=== PATIENT | female | born 1980 | race Caucasian/White ===

== ENCOUNTER 2019-11-16 09:31 | Emergency (ER) | payer OTHER ==
[2019-11-16] MEDS ORDERED: KETOROLAC 30 MG/ML INJ ONE (11:26)
[2019-11-16] MEDS ORDERED: GABAPENTIN 300 MG CAP ONE (11:26)
[2019-11-16] MEDS ORDERED: carBAMazepine 200 MG TAB ONE (11:26)
--- NOTE | 2019-11-16 12:28 | ER ---
Nurse's Notes [facility] Name: Nelsy Hernández Age: 39 yrs Sex: Female : 1980 Arrival Date: 11/16/2019 Time: 09:33 Bed 24 Private MD: Junaid Joyce Diagnosis: Trigeminal neuralgia Presentation: 11/15 10:08 Chief complaint: Patient states: L side face pain since yesterday, L upper mouth and L ca1 jaw pain is worse. Pain with talking, swallowing, spitting. Denies dental issues. Coronavirus screen: Client denies travel out of the [place] in the last 14 days. At this time, the client does not indicate any symptoms associated with coronavirus-19. Ebola Screen: Patient negative for fever greater than or equal to 101.5 degrees Fahrenheit, and additional compatible Ebola Virus Disease symptoms Patient denies exposure to infectious person. Patient denies travel to an Ebola-affected area in the 21 days before illness onset. No symptoms or risks identified at this time. Initial Sepsis Screen: Does the patient meet any 2 criteria? No. Patient's initial sepsis screen is negative. Does the patient have a suspected source of infection? No. Patient's initial sepsis screen is negative. Risk Assessment: Do you want to hurt yourself or someone else? Patient reports no desire to harm self or others. Onset of symptoms was November 16, 2019. 10:08 Method Of Arrival: Ambulatory ca1 10:08 Acuity: CRISTINA 4 ca1 Triage Assessment: 12:00 Pain: Also complains of no other associated symptoms. iw 12:00 Headache History: The patient has had previous headaches. iw 13:00 General: Appears in no apparent distress. Behavior is cooperative. 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 - Social history:: Smoking status: Patient denies any tobacco usage or history of. Screenin:20 Abuse screen: Denies threats or abuse. Denies injuries from another. Nutritional sv screening: No deficits noted. Tuberculosis screening: No symptoms or risk factors identified. Fall Risk None identified. Assessment: 12:32 Reassessment: Patient appears in no apparent distress at this time. No changes from sv previously documented assessment. Patient and/or family updated on plan of care and expected duration. Pain level reassessed. Patient is alert, oriented x 3, equal unlabored respirations, skin warm/dry/pink. Pt waiting IM shot time before discharge. 13:02 Reassessment: Patient appears in no apparent distress at this time. Patient and/or sv family updated on plan of care and expected duration. Pain level reassessed. Patient is alert, oriented x 3, equal unlabored respirations, skin warm/dry/pink. Vital Signs: 10:08 BP 130 / 85; Pulse 79; Resp 18 S; Temp 99.4(TE); Pulse Ox 99% on R/A; Weight 77.11 kg ca1 (R); Height 5 ft. 5 in. (165.10 cm) (R); 12:11 BP 111 / 81; Pulse 84; Resp 20; Temp 99.4; Pulse Ox 100% on R/A; dh4 10:08 Body Mass Index 28.29 (77.11 kg, 165.10 cm) ca1 ED Course: 09:33 Patient arrived in ED. ag5 09:34 Junaid Joyce MD is Private Physician. ag5 10:10 Triage completed. ca1 10:11 Arm band placed on. ca1 10:14 Janet Sunshine, TARAN is Primary Nurse. iw 10:19 Nelly Ortiz FNP-C is [facility]. snw 10:19 Tomer Rincon MD is Attending Physician. snw 11:20 Patient has correct armband on for positive identification. Bed in low position. Call sv light in reach. Door closed. Head of bed elevated. 12:28 Junaid Joyce MD is Referral Physician. snw 12:28 Leonardo Talley MD is Referral Physician. snw 13:02 No provider procedures requiring assistance completed. Patient did not have IV access sv during this emergency room visit. Administered Medications: 11:20 Drug: Gabapentin 300 mg Route: PO; sv 12:27 Follow up: Response: No adverse reaction sv 11:20 Drug: TORadol 30 mg Route: IM; Site: right deltoid; sv 12:27 Follow up: Response: No adverse reaction sv 11:21 Drug: TEGretol 600 mg Route: PO; sv 12:27 Follow up: Response: No adverse reaction sv 12:32 Drug: fentaNYL (PF) 50 mcg Route: IM; Site: left deltoid; sv 13:02 Follow up: Response: No adverse reaction; RASS: Alert and Calm (0) sv Outcome: 12:28 Discharge ordered by MD. rosas 13:02 Discharged to home ambulatory. sv 13:02 Condition: stable 13:02 Discharge instructions given to patient, Instructed on discharge instructions, follow up and referral plans. medication usage, Demonstrated understanding of instructions, follow-up care, medications, Prescriptions given X 2. 13:02 Patient left the ED. sv Signatures: Mary Campos RN Nelly Vogt, FEED MILL TENDER-C FEED MILL TENDER-Csnw Janet Sunshine, RN TARAN Rama Howell RN RN ca1 [place], Ajare 5 Gonzalez Johnson 4
--- NOTE | 2019-11-16 12:28 | EDPHYS ---
Physician Documentation [facility] Name: Nelsy Hernández Age: 39 yrs Sex: Female : 1980 Arrival Date: 11/16/2019 Time: 09:33 Bed 24 Private MD: Junaid Joyce ED Physician Tomer Rincon HPI: 11/15 12:27 This 39 yrs old Female presents to ER via Ambulatory with complaints of snw Facial Swelling, Jaw Pain, Headache. 12:27 Onset: The symptoms/episode began/occurred suddenly, this morning. Associated signs and snw symptoms: Pertinent positives: headache. Modifying factors: The patient symptoms are alleviated by nothing. The patient has experienced a previous episode, but today's symptoms are worse. The patient has not recently seen a physician. 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 - Social history:: Smoking status: Patient denies any tobacco usage or history of. ROS: 12:26 Constitutional: Negative for fever, chills, and weight loss, Eyes: Negative for injury, snw pain, redness, and discharge, ENT: Negative for injury, pain, and discharge, Neck: Negative for injury, pain, and swelling, Cardiovascular: Negative for chest pain, palpitations, and edema, Respiratory: Negative for shortness of breath, cough, wheezing, and pleuritic chest pain, Abdomen/GI: Negative for abdominal pain, nausea, vomiting, diarrhea, and constipation, Back: Negative for injury and pain, : Negative for injury, bleeding, discharge, and swelling, MS/Extremity: Negative for injury and deformity, Skin: Negative for injury, rash, and discoloration. 12:26 Neuro: Positive for left severe facial pain. Exam: 12:24 Constitutional: This is a well developed, well nourished patient who is awake, alert, snw and in no acute distress. Head/Face: Normocephalic, atraumatic. positive for severe pain at eye level, cheek level, and to left upper molar Eyes: Pupils equal round and reactive to light, extra-ocular motions intact. Lids and lashes normal. Conjunctiva and sclera are non-icteric and not injected. Cornea within normal limits. Periorbital areas with no swelling, redness, or edema. ENT: Nares patent. No nasal discharge, no septal abnormalities noted. Tympanic membranes are normal and external auditory canals are clear. Oropharynx with no redness, swelling, or masses, exudates, or evidence of obstruction, uvula midline. Mucous membranes moist. Neck: Trachea midline, no thyromegaly or masses palpated, and no cervical lymphadenopathy. Supple, full range of motion without nuchal rigidity, or vertebral point tenderness. No Meningismus. Chest/axilla: Normal chest wall appearance and motion. Nontender with no deformity. No lesions are appreciated. Cardiovascular: Regular rate and rhythm with a normal S1 and S2. No gallops, murmurs, or rubs. Normal PMI, no JVD. No pulse deficits. Respiratory: Lungs have equal breath sounds bilaterally, clear to auscultation and percussion. No rales, rhonchi or wheezes noted. No increased work of breathing, no retractions or nasal flaring. Abdomen/GI: Soft, non-tender, with normal bowel sounds. No distension or tympany. No guarding or rebound. No evidence of tenderness throughout. Back: No spinal tenderness. No costovertebral tenderness. Full range of motion. Skin: Warm, dry with normal turgor. Normal color with no rashes, no lesions, and no evidence of cellulitis. MS/ Extremity: Pulses equal, no cyanosis. Neurovascular intact. Full, normal range of motion. Psych: Awake, alert, with orientation to person, place and time. Behavior, mood, and affect are within normal limits. 12:24 Neuro: Orientation: is normal, Mentation: is normal, Cerebellar function: is grossly normal, Sensation: is normal, Gait: not tested. seizure activity, is not displayed by the patient. Vital Signs: 10:08 BP 130 / 85; Pulse 79; Resp 18 S; Temp 99.4(TE); Pulse Ox 99% on R/A; Weight 77.11 kg ca1 (R); Height 5 ft. 5 in. (165.10 cm) (R); 12:11 BP 111 / 81; Pulse 84; Resp 20; Temp 99.4; Pulse Ox 100% on R/A; dh4 10:08 Body Mass Index 28.29 (77.11 kg, 165.10 cm) ca1 MDM: 10:23 Patient medically screened. [facility] 12:28 Data reviewed: vital signs, nurses notes. Data interpreted: Pulse oximetry: on room air snw is 100 %. Interpretation: normal. Counseling: I had a detailed discussion with the patient and/or guardian regarding: the historical points, exam findings, and any diagnostic results supporting the discharge/admit diagnosis, the presence of at least one elevated blood pressure reading (>120/80) during this emergency department visit, the need for outpatient follow up, for definitive care, a neurologist. Special discussion: I have referred the patient to see his PCP for further evaluation of high blood pressure. Based on the history and exam findings, there is no indication for further emergent testing or inpatient evaluation. I discussed with the patient/guardian the need to see the neurologist for further evaluation of the symptoms. I discussed with the patient/guardian the need to see the primary care provider for further evaluation of the symptoms. Administered Medications: 11:20 Drug: Gabapentin 300 mg Route: PO; sv 12:27 Follow up: Response: No adverse reaction sv 11:20 Drug: TORadol 30 mg Route: IM; Site: right deltoid; sv 12:27 Follow up: Response: No adverse reaction sv 11:21 Drug: TEGretol 600 mg Route: PO; sv 12:27 Follow up: Response: No adverse reaction sv 12:32 Drug: fentaNYL (PF) 50 mcg Route: IM; Site: left deltoid; sv 13:02 Follow up: Response: No adverse reaction; RASS: Alert and Calm (0) sv Disposition: 17:40 Co-signature as Attending Physician, Tomer Rincon MD I agree with the assessment and [facility] plan of care. Disposition: 11/16/19 12:28 Discharged to Home. Impression: Trigeminal neuralgia. - Condition is Stable. - Discharge Instructions: Trigeminal Neuralgia. - Prescriptions for Tegretol 200 mg Oral Tablet - take 1 tablet by ORAL route every 12 hours; 60 tablet. orphenadrine citrate 100 mg Oral Tablet Sustained Release - take 1 tablet by ORAL route 2 times per day As needed; 20 tablet. - Medication Reconciliation Form, Thank You Letter, Antibiotic Education, Prescription Opioid Use form. - Follow up: Junaid Joyce; When: 1 - 2 days; Reason: Recheck today's complaints, Continuance of care, Re-evaluation by your physician. Follow up: Leonardo Talley; When: 1 week; Reason: Recheck today's complaints, Continuance of care. Signatures: Mary Campos RN RN Tomer Riddle MD MD cha Waters, Shelly, DESIGN VERIFICATION ENGINEER-C DESIGN VERIFICATION ENGINEER-Csnw Rama Howell RN RN ca1 Corrections: (The following items were deleted from the chart) 13:02 12:28 11/16/2019 12:28 Discharged to Home. Impression: Trigeminal neuralgia. Condition sv is Stable. Discharge Instructions: Trigeminal Neuralgia. Prescriptions for Tegretol 200 mg Oral Tablet - take 1 tablet by ORAL route every 12 hours; 60 tablet, orphenadrine citrate 100 mg Oral Tablet Sustained Release - take 1 tablet by ORAL route 2 times per day As needed; 20 tablet. and Forms are Medication Reconciliation Form, Thank You Letter, Antibiotic Education, Prescription Opioid Use. Follow up: Junaid Joyce; When: 1 - 2 days; Reason: Recheck today's complaints, Continuance of care, Re-evaluation by your physician. Follow up: Leonardo Talley; When: 1 week; Reason: Recheck today's complaints, Continuance of care. snw
[2019-11-16] MEDS ORDERED: FENTANYL CITR 100 MCG/2 ML ONE (12:39)
[2019-11-16 13:08] VITALS: TEMP 99.4
[2019-11-16 13:10] VITALS: BP 111/81; O2SAT 100
== END 2019-11-16 13:02 | disposition home or self-care (01) ==
LOC: ER 09:31
DX: G50.0 Trigeminal neuralgia (principal); Z98.82 Breast implant status
CPT/HCPCS: 96372; 99283; J3010

== ENCOUNTER 2021-01-10 07:26 | Emergency (ER) | payer OTHER ==
[2021-01-10] MEDS ORDERED: METOCLOPRAMIDE 10 MG/2mL INJ ONE (08:18)
[2021-01-10] MEDS ORDERED: DIPHENHYDRAMINE 50 MG/ML VIAL ONE (08:18)
[2021-01-10] MEDS ORDERED: KETOROLAC 30 MG/ML INJ ONE (08:18)
[2021-01-10] MEDS ORDERED: NA CHLORIDE 0.9% 1,000 ML ONE (08:18)
--- NOTE | 2021-01-10 08:38 | EDPHYS ---
Physician Documentation [facility] Name: Nelsy Hernández Age: 40 yrs Sex: Female : 1980 Arrival Date: 01/10/2021 Time: 07:34 Bed 12 Private MD: ED Physician Tomer Rincon HPI: 01/10 08:36 This 40 yrs old Female presents to ER via Ambulatory with complaints of kb Headache. 08:36 The patient complains of pain to the top of head and forehead. The patient describes kb the headache as constant. Onset: The symptoms/episode began/occurred at 03:00. Associated signs and symptoms: Pertinent positives: nausea, Photophobia. Severity of symptoms: At its worst the pain was moderate, in the emergency department the pain is unchanged. Headache History: The patient has had previous headaches and this one is similar to previous episodes. The symptoms are alleviated by nothing. the symptoms are aggravated by lights. The patient has experienced similar episodes in the past. The patient has not recently seen a physician. 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 - Social history:: Smoking status: Patient denies any tobacco usage or history of. ROS: 08:36 Constitutional: Negative for fever, chills, and weight loss. kb 08:36 Abdomen/GI: Positive for nausea. 08:36 Neuro: Positive for headache. 08:36 All other systems are negative. Exam: 08:36 Constitutional: This is a well developed, well nourished patient who is awake, alert, kb and in no acute distress. Head/Face: Normocephalic, atraumatic. Eyes: Pupils equal round and reactive to light, extra-ocular motions intact. Lids and lashes normal. Conjunctiva and sclera are non-icteric and not injected. Cornea within normal limits. Periorbital areas with no swelling, redness, or edema. ENT: Moist Mucous membranes Respiratory: Respirations even and unlabored. No increased work of breathing, no retractions or nasal flaring. Skin: Warm, dry with normal turgor. Normal color. MS/ Extremity: Pulses equal, no cyanosis. Neurovascular intact. Full, normal range of motion. Neuro: Awake and alert, GCS 15, oriented to person, place, time, and situation. Moves all extremities. Normal gait. Psych: Awake, alert, with orientation to person, place and time. Behavior, mood, and affect are within normal limits. Vital Signs: 07:39 BP 120 / 80; Pulse 101; Resp 17; Temp 99.1; Pulse Ox 98% on R/A; Weight 79.38 kg; jl7 Height 5 ft. 5 in. (165.10 cm); Pain 10/10; 07:39 Body Mass Index 29.12 (79.38 kg, 165.10 cm) jl7 Titus Coma Score: 08:36 Eye Response: spontaneous(4). Verbal Response: oriented(5). Motor Response: obeys kb commands(6). Total: 15. MDM: 07:46 Patient medically screened. kb 08:36 Data reviewed: vital signs, nurses notes. Data interpreted: Pulse oximetry: on room air kb is 98 %. Interpretation: normal. Counseling: I had a detailed discussion with the patient and/or guardian regarding: the historical points, exam findings, and any diagnostic results supporting the discharge/admit diagnosis, the need for outpatient follow up, a neurologist, to return to the emergency department if symptoms worsen or persist or if there are any questions or concerns that arise at home. 08:38 Response to treatment: the patient's symptoms have resolved after treatment. kb 01/10 07:49 Order name: IV Start; Complete Time: 08:08 kb Administered Medications: 08:08 Drug: NS 0.9% 1000 ml Route: IV; Rate: 1000 ml; Site: right wrist; ap3 08:44 Follow up: IV Intake: 1000ml ap3 08:08 Drug: Ketorolac 30 mg Route: IVP; Site: right wrist; ap3 08:45 Follow up: Response: No adverse reaction ap3 08:08 Drug: Reglan (metoCLOPramide) 10 mg Route: IVP; Site: right wrist; ap3 08:45 Follow up: Response: No adverse reaction ap3 08:08 Drug: Benadryl (diphenhydrAMINE) 12.5 mg Route: IVP; Site: right wrist; ap3 08:45 Follow up: Response: No adverse reaction ap3 Disposition Summary: 01/10/21 08:38 Discharge Ordered Location: Home kb Condition: Stable kb Diagnosis - Migraine without aura, not intractable kb Followup: kb - With: Emergency Department - When: As needed - Reason: Worsening of condition Followup: kb - With: Private Physician - When: 2 - 3 days - Reason: Recheck today's complaints, Continuance of care, Re-evaluation by your physician Discharge Instructions: - Discharge Summary Sheet kb - Migraine Headache, [id number] kb Forms: - Medication Reconciliation Form kb - Thank You Letter kb - Antibiotic Education kb - Prescription Opioid Use kb - Work release form ap3 Addendum: 01/12/2021 10:55 Co-signature as Attending Physician, Tomer Rincon MD I agree with the assessment and [facility] plan of care. Signatures: Ana George, CORTEZ-C SMALL ANIMAL VETERINARIAN-Tomer Torres MD MD cha Leal, Jahala, RN RN jl7 Florecita Coughlin RN RN ap3
--- NOTE | 2021-01-10 08:38 | ER ---
Nurse's Notes [facility] Name: Nelsy Hernández Age: 40 yrs Sex: Female : 1980 Arrival Date: 01/10/2021 Time: 07:34 Bed 12 Private MD: Diagnosis: Migraine without aura, not intractable Presentation: 01/10 07:39 Chief complaint: Patient states: Migraine from behind the eyes radiating all the way jl7 back since 0300, reports nausea. Coronavirus screen: At this time, the client does not indicate any symptoms associated with coronavirus-19. Ebola Screen: No symptoms or risks identified at this time. Initial Sepsis Screen: Does the patient meet any 2 criteria? No. Patient's initial sepsis screen is negative. Does the patient have a suspected source of infection? No. Patient's initial sepsis screen is negative. Risk Assessment: Do you want to hurt yourself or someone else? Patient reports no desire to harm self or others. Onset of symptoms was January 10, 2021 at 03:00. 07:39 Method Of Arrival: Ambulatory [facility] 07:39 Acuity: CRISTINA 3 jl7 Triage Assessment: 07:40 Headache History: The patient has had previous headaches and this one is more severe jl7 than previous episodes. General: Appears in no apparent distress. uncomfortable, Behavior is calm, cooperative, appropriate for age. Pain: Complains of pain in forehead Pain currently is 10 out of 10 on a pain scale. Pain began 4 hours ago. Also complains of nausea. Neuro: Level of Consciousness is awake, alert, obeys commands, Oriented to person, place, time, situation. 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 - Social history:: Smoking status: Patient denies any tobacco usage or history of. Screenin:50 Abuse screen: Denies threats or abuse. Nutritional screening: No deficits noted. ap3 Tuberculosis screening: No symptoms or risk factors identified. Fall Risk None identified. Assessment: 07:49 General: Appears in no apparent distress. Behavior is calm, cooperative, appropriate ap3 for age. Pain: Complains of pain in head. Neuro: Level of Consciousness is awake, alert, obeys commands, Oriented to person, place, time, situation, Gait is steady, Speech is normal. Cardiovascular: Patient's skin is warm and dry. Respiratory: Airway is patent Respiratory effort is even, unlabored, Respiratory pattern is regular, symmetrical. Vital Signs: 07:39 BP 120 / 80; Pulse 101; Resp 17; Temp 99.1; Pulse Ox 98% on R/A; Weight 79.38 kg; jl7 Height 5 ft. 5 in. (165.10 cm); Pain 10/10; 07:39 Body Mass Index 29.12 (79.38 kg, 165.10 cm) jl7 Titus Coma Score: 08:36 Eye Response: spontaneous(4). Verbal Response: oriented(5). Motor Response: obeys kb commands(6). Total: 15. ED Course: 07:34 Patient arrived in ED. as 07:40 Triage completed. jl7 07:40 Arm band placed on right wrist. jl7 07:46 Ana George FNP-C is [facility]. kb 07:46 Tomer Rincon MD is Attending Physician. kb 07:49 Florecita Coughlin RN is Primary Nurse. ap3 07:50 Patient has correct armband on for positive identification. patient placed in chair ap3 with call light within reach. Door closed. Noise minimized. 08:09 Inserted saline lock: 20 gauge in right wrist, using aseptic technique. ap3 08:49 No provider procedures requiring assistance completed. IV discontinued, intact, ap3 bleeding controlled, No redness/swelling at site. Pressure dressing applied. Administered Medications: 08:08 Drug: NS 0.9% 1000 ml Route: IV; Rate: 1000 ml; Site: right wrist; ap3 08:44 Follow up: IV Intake: 1000ml ap3 08:08 Drug: Ketorolac 30 mg Route: IVP; Site: right wrist; ap3 08:45 Follow up: Response: No adverse reaction ap3 08:08 Drug: Reglan (metoCLOPramide) 10 mg Route: IVP; Site: right wrist; ap3 08:45 Follow up: Response: No adverse reaction ap3 08:08 Drug: Benadryl (diphenhydrAMINE) 12.5 mg Route: IVP; Site: right wrist; ap3 08:45 Follow up: Response: No adverse reaction ap3 Intake: 08:44 IV: 1000ml; Total: 1000ml. ap3 Outcome: 08:38 Discharge ordered by MD. saini 08:49 Discharged to home ambulatory. ap3 08:49 Condition: good 08:49 Discharge instructions given to patient, Instructed on discharge instructions, follow up and referral plans. Demonstrated understanding of instructions, follow-up care. 08:49 Patient left the ED. ap3 Signatures: Ana George, PSYCH COORDINATOR-C CORTEZ-Emmy Berumen Jahala, RN RN jl7 Florecita Coughlin RN RN ap3
[2021-01-10 12:01] VITALS: BP 120/80; TEMP 99.1; O2SAT 98
== END 2021-01-10 08:49 | disposition home or self-care (01) ==
LOC: ER 07:26
DX: G43.009 Migraine without aura, not intractable, without status migrainosus (principal); F32.9 Major depressive disorder, single episode, unspecified
CPT/HCPCS: 96375; 96374; 99283; J2765; J1200; J7030

== ENCOUNTER 2021-05-03 03:47 | Emergency (ER) | payer OTHER, SELFPAY ==
--- OUTSIDE RECORDS SUMMARY | 2021-05-03 03:51 | XMS REPORT | Continuity of Care Document ---
:1980 Author Organization [facility] t Address [address] [place] [address] Care Team Providers Name Role Phone Pcp, Does Not Have A Primary Care Physician Sandra DRUG ENFORCEMENT ADMINISTRATION AGENT, J Attending Clinician Ebrahim DRUG ENFORCEMENT ADMINISTRATION AGENT Attending Clinician EBRAHIM Attending Clinician Unavailable Patsy Ray MD Attending Clinician Patsy RAY Attending Clinician Unavailable Doctor Unassigned, Name Attending Clinician Unavailable Payers Payer Name Policy Type Policy Number Effective Date Expiration Date S ource Problems Condition Condition Condition Status Onset Resolution Last Treating Co mments Source Name Details Category Date Date Treatment Clinician Date Chest pain Chest pain Disease Active U nivers 4-23 ity of 00:00: [place] 00 [facility] Allergies, Adverse Reactions, Alerts Allergy Allergy Status Severity Reaction(s) Onset Inactive Treating Comm ents Source Name Type Date Date Clinician NO KNOWN Drug Active Univers ALLERGIE Class ity of S [facility] Social History Social Habit Start Date Stop Date Quantity Comments Source History of tobacco Cigarette Smoker University of use [facility] Exposure to Not sure University SARS-CoV-2 (event) [facility] Alcohol intake 2021-01-10 2021-01-10 0 /d University of 00:00:00 00:00:00 [facility] Cigarettes smoked 2020-11-12 2020-11-12 Univers ity of current (pack per 00:00:00 00:00:00 ) - Reported [place] Cigarette 2020-11-12 2020-11-12 University of pack-years 00:00:00 00:00:00 [facility] Tobacco use and 2020-11-12 2020-11-12 Never used Universit y of exposure 00:00:00 00:00:00 [facility] Sex Assigned At [birth year] Universit y of 00:00:00 00:00:00 [facility] Smoking Status Start Date Stop Date Source Former smoker 2020-11-12 00:00:00 2020-11-12 00:00:00 Universi ty of [facility] Medications Ordered Filled Start Stop Current Ordering Indication Dosage Frequency Signature Comments Components Source Medication Medication Date Date Medication? Clinician (SIG) Name Name ALPRAZolam Yes .5mg Take 0.5 Uni vers (XANAX) 0.5 -28 mg by ity of mg tablet 09:44: mouth 3 [place] 29 (three) Medical times Branch daily. SUMATRIPTAN Yes Take by Un monika SUCCINATE 01-10 mouth as ity of (IMITREX 09:44: needed for [place] as ORAL) 08 Headache. [facility] Branch ondansetron 2020- No [id number] 4mg Take 1 Univers 4 mg tablet 01-10 10-04 tablet by it y of 00:00: 04:59 mouth [place] 00 :00 every 8 Medical (eight) Branch hours as needed for Nausea and Vomiting (N/V) for up to 5 days. metoclopram 2020-0 Yes [id number] 1 tab Univers naty HCl 10 7-31 every 4hr ity of mg tablet 00:00: as needed [place] 00 for nausea Medical Branch acetaminoph 2020-0 Yes [id number] 2 - Uni vers en-codeine 7-31 tab Every ity of 300-30 mg 00:00: 4hrs as [place] tablet 00 needed for Medical pain or Branch cough requiring narcotic Indication s: acute pain metoclopram 2020-0 Yes [id number] 1 tab Univers naty HCl 10 7-31 every 4hr ity of mg tablet 00:00: as needed [place] 00 for nausea Medical Branch acetaminoph 2020-0 Yes [id number] 2 - Uni vers en-codeine 7-31 tab Every ity of 300-30 mg 00:00: 4hrs as [place] tablet 00 needed for Medical pain or Branch cough requiring narcotic Indication s: acute pain metoclopram 2020-0 Yes [id number] 1 tab Univers naty HCl 10 7-31 every 4hr ity of mg tablet 00:00: as needed [place] 00 for nausea Medical Branch acetaminoph 2020-0 Yes [id number] 04/16 - Uni vers en-codeine 7-31 tab Every ity of 300-30 mg 00:00: 4hrs as [place] tablet 00 needed for Medical pain or Branch cough requiring narcotic Indication s: acute pain cephALEXin 2020- No [id number] 500mg Take 1 Univers 500 mg 7- 08-06 tablet by ity of tablet 00:00: 04:59 mouth 2 [place] 00 :00 (two) Medical times Branch daily for 5 days. May use capsules cephALEXin 2020- No [id number] 500mg Take 1 Univers 500 mg 7-31 08-06 tablet by ity of tablet 00:00: 04:59 mouth 2 [place] 00 :00 (two) Medical times Branch daily for 5 days. May use capsules SUMATRIPTAN Yes Take by Un monika SUCCINATE 4-29 mouth as ity of (IMITREX 20:46: needed for [place] as ORAL) 13 Headache. Medical Branch SUMATRIPTAN Yes Take by Un monika SUCCINATE 4-29 mouth as ity of (IMITREX 20:46: needed for [place] as ORAL) 13 Headache. Medical Branch SUMATRIPTAN Yes Take by Un monika SUCCINATE 4-29 mouth as ity of (IMITREX 20:46: needed for [place] as ORAL) 13 Headache. Medical Branch clonazePAM Yes .25mg Take 0.5 Un monika (KLONOPIN) 4-29 tablets by ity of 0.5 mg 00:00: mouth 2 [place] tablet 00 (two) Medical times Branch daily as needed (anxiety). ARIPiprazol 2015- Yes 2.5mg Take 0.5 U nivers e (ABILIFY) 4-29 tablets by it y of 5 [place] 00:[place] bedtime. Medical Branch escitalopra Yes 10mg Take 1 Univ ers m oxalate 4-29 tablet by ity o f (LEXAPRO) 00:00: mouth [place] 10 mg 00 daily. Medical tablet Branch zolpidem Yes 10mg Take 1 Univers (AMBIEN) 10 4-29 tablet by [place] of mg tablet 00:00[place] bedtime as Medical needed for Branch Insomnia. clonazePAM Yes .25mg Take 0.5 Un monika (KLONOPIN) 4-29 tablets by ity of 0.5 mg 00:00: mouth 2 [place] tablet 00 (two) Medical times Branch daily as needed (anxiety). ARIPiprazol Yes 2.5mg Take 0.5 U nivers e (ABILIFY) 4-29 tablets by it y of 5 mg tablet 00:[place] bedtime. Medical Branch escitalopra Yes 10mg Take 1 Univ ers m oxalate 4-29 tablet by ity o f (LEXAPRO) 00:00: mouth [place] 10 mg 00 daily. Medical tablet Branch zolpidem 0 Yes 10mg Take 1 Univers (AMBIEN) 10 4-29 tablet by [place]y of mg tablet 00:00: [place] bedtime as Medical needed for Branch Insomnia. clonazePAM Yes .25mg Take 0.5 Un monika (KLONOPIN) 4-29 tablets by ity of 0.5 mg 00:00: mouth 2 [place] tablet 00 (two) Medical times Branch daily as needed (anxiety). ARIPiprazol Yes 2.5mg Take 0.5 U nivers e (ABILIFY) 4-29 tablets by it y of 5 mg tablet 00:[place] bedtime. Medical Branch escitalopra Yes 10mg Take 1 Univ ers m oxalate 4-29 tablet by ity o f (LEXAPRO) 00:00: mouth [place] 10 mg 00 daily. Medical tablet Branch zolpidem Yes 10mg Take 1 Univers (AMBIEN) 10 4-29 tablet by ity of mg tablet 00:00: [place] 00 bedtime as Medical needed for Branch Insomnia. clonazePAM Yes .25mg Take 0.5 Un monika (KLONOPIN) 4-29 tablets by ity of 0.5 mg 00:00: mouth 2 [place] tablet 00 (two) Medical times Branch daily as needed (anxiety). ARIPiprazol Yes 2.5mg Take 0.5 U nivers e (ABILIFY) 4-29 tablets by it y of 5 mg tablet 00:00: [place] bedtime. Medical Branch escitalopra Yes 10mg Take 1 Univ ers m oxalate 4-29 tablet by ity o f (LEXAPRO) 00:00: mouth [place] 10 mg 00 daily. Medical tablet Branch zolpidem Yes 10mg Take 1 Univers (AMBIEN) 10 4-29 tablet by ity of mg tablet 00:00: [place] 00 bedtime as Medical needed for Branch Insomnia. Vital Signs Vital Name Observation Time Observation Value Comments Source Systolic blood 2021-01-10 14:42:00 127 [facility]Hg[facility] Diastolic blood 2021-01-10 14:42:00 79 mm[facility]Hg[facility] Heart rate 2021-01-10 14:42:00 112 /min [facility] Body temperature 2021-01-10 14:42:00 36.17 [facility] Respiratory rate 2021-01-10 14:42:00 18 /min [facility] Body height 2021-01-10 14:42:00 165.1 cm [facility] Body weight 2021-01-10 14:42:00 79.379 kg Universi ty of [facility] BMI 2021-01-10 14:42:00 29.12 kg/m2 Universi ty [facility] Oxygen saturation in 2021-01-10 14:42:00 99 /min University of Arterial blood by [facility] Pulse oximetry [place] Systolic blood 2020-11-12 22:38:00 115 mm[Hg] Univer sity of pressure [facility] Diastolic blood 2020-11-12 22:38:00 81 mm[Hg] Unive rsity of pressure [facility] Heart rate 2020-11-12 22:38:00 134 /min [facility] Body temperature 2020-11-12 22:38:00 36.83 [facility] height 2020-11-12 22:38:00 167.6 cm Universi ty [facility] Body weight 2020-11-12 22:38:00 83.915 kg [facility] BMI 2020-11-12 22:38:00 29.86 kg/m2 Universi ty [facility] Oxygen saturation in 2020-11-12 22:38:00 99 /min University of Arterial blood by [facility] Pulse oximetry [place] Procedures Procedure Date / Time Performing Clinician Source Performed URINALYSIS MICROSCOPIC 2020-11-13 00:17:00 Duane Ray [facility] POCT URINALYSIS 2020-11-13 00:13:00 Duane Ray [place] o f [facility] ASSIGNMENT OF BENEFITS 2020-11-12 22:21:26 Doctor Unassigned, No [facility] Encounters Start End Encounter Admission Attending Care Care Encounter Source Date/Time Date/Time Type Type Clinicians Facility Department ID 2021-01-10 2021-01-10 Urgent Theodora Flores [facility] [id number] [facility] 09:39:36 10:12:23 [facility] [id number] [facility] [id number] [place] as Hernán?Blea [id number] [address] Medical Office Building 2021-01-10 2021-01-[address] [facility] [id number] Univers 09:40:00 09:40:00 [id number] [facility] 2021-01-10 2021-01-[address] [facility] [id number] Univers 09:40:00 09:40:00 [facility] 2020-11-12 2020-11-[address] [facility] [id number] Univers 17:22:14 19:46:41 Care [facility] [id number] it y of [place] [id number] [place] as Professio [id number] [place] [address] Office Building One 2020-11-12 2020-11-12 [facility] [id number] Univers 17:20:00 17:20:00 DUANE [facility] 2020-11-12 2020-11-12 Orders Doctor JEB [id number] Univers 00:00:00 00:00:00 Only Unassigned, LEIGH ANN [id number] ity of [place] [facility] [id number] [place] as [phone] [address] Results Test Description Test Time Test Comments Results Result Comments Source URINALYSIS MICROSCOPIC 2020-11-13 02:46:00 Test Item Value Reference Range Interpretation Comme nts RBC/HPF (test code = See_Comment [Autom ated message] The system [id number]) which generated this result transmitted ref erence range: 0 - 3 HPF. The refe rence range was not used to int erpret this result as zoraida l/abnormal. WBC/HPF (test code = See_Comment H [Autom ated message] The system [id number]) which generated this result transmitted ref erence range: 0 - 5 HPF. The refe rence range was not used to int erpret this result as zoraida l/abnormal. BACTERIA (test code = Many Negative A [id number]) SQ EPITH (test code = HPF [id number]) Lab Interpretation (test code Abnormal = 36919-4) [facility] [id number] 00:15:00 Test Item Value Reference Range Interpretation Comments POCT U SP GRAV (test 1.020 mg/dl 1.005-1.025 code = 3255) POCT PH U (test code = 5 mg/dl 5-8 3254) POCT U LEUK EST (test + Negative - code = 3263) Negative POCT U NIT (test code negative Negative - = 3262) Negative POCT U PROT (test code trace Negative - = 3259) Negative POCT U GLU (test code negative Negative - = 3256) Negative POCT U KETONE (test negative Negative - code = 3258) Negative POCT U UROBILI (test normal 0.2-1 code = 3260) POCT U BILI (test code negative Negative - = 3261) Negative POCT U BLD (test code about 250Ery/uL Negative - = 3257) Negative POCT U COLOR (test yellow code = 3266) POCT U APPEAR (test clear code = 3267) PELON (test code = PELON) accurate development and interpretation of all internal controls Lab Interpretation Abnormal (test code = 36956-5) [facility] SPECIFIC [id number] 00:15:00 Test Item Value Reference Range Interpretation Comments POCT U SP GRAV (test 1.020 mg/dl 1.005-1.025 code = 3255) POCT PH U (test code = 5 mg/dl 5-8 3254) POCT U LEUK EST (test + Negative - code = 3263) Negative POCT U NIT (test code negative Negative - = 3262) Negative POCT U PROT (test code trace Negative - = 3259) Negative POCT U GLU (test code negative Negative - = 3256) Negative POCT U KETONE (test negative Negative - code = 3258) Negative POCT U UROBILI (test normal 0.2-1 code = 3260) POCT U BILI (test code negative Negative - = 3261) Negative POCT U BLD (test code about 250Ery/uL Negative - = 3257) Negative POCT U COLOR (test yellow code = 3266) POCT U APPEAR (test clear code = 3267) PELON (test code = PELON) accurate development and interpretation of all internal controls Lab Interpretation Abnormal (test code = 79899-3) [facility]
[2021-05-03 04:24] LABS: Absolute Lymphocytes (CBC) 3.5 K/uL (0.7-4.9); Hematocrit 44.5 % (36.0-45.0); Lymphocytes % 39.8 % (15.3-44.8)
[2021-05-03 04:28] LABS: Protime INR 0.92
[2021-05-03 04:38] LABS: ALT/SGPT 18 U/L (12-78); AST/SGOT 18 U/L (15-37); Albumin 3.8 g/dL (3.4-5.0); Alkaline Phosphatase 70 U/L (45-117); BUN Blood Urea Nitrogen 21 mg/dL (7-18); Bicarbonate 23 mmol/L (21-32); Bilirubin Direct < 0.1 mg/dL (0-0.2); Bilirubin Total 0.2 mg/dL (0.2-1.0); Creatine Phosphokinase 200 U/L (26-192); Glucose Level 127 mg/dL (74-106); Protein, Total 7.8 g/dL (6.4-8.2); Sodium Level 137 mmol/L (136-145)
[2021-05-03 04:39] LABS: Urine Blood Negative (Negative); Urine Glucose Negative (Negative); Urine Protein Negative (Negative); Urine pH 6.5 (5.0-7.0)
[2021-05-03 04:40] LABS: Potassium 2.7 mmol/L (3.5-5.1)
[2021-05-03] MEDS ORDERED: Magnesium Sulfate 2gm IVPB 2 G/50 ML BAG IV ONE (04:54)
[2021-05-03 05:08] LABS: Barbiturates NEGATIVE (NEGATIVE); Benzodiazepines NEGATIVE (NEGATIVE); Cocaine NEGATIVE (NEGATIVE); METHAMPHETAM NEGATIVE (NEGATIVE); Methadone NEGATIVE (NEGATIVE); Opiates NEGATIVE (NEGATIVE); Phencyclidine NEGATIVE (NEGATIVE); THC Cannibis NEGATIVE (NEGATIVE)
[2021-05-03 05:10] LABS: SARS-COV-2 RT PCR NEGATIVE (NEGATIVE)
[2021-05-03] MEDS ORDERED: KETOROLAC 30 MG/ML INJ ONE (05:38)
[2021-05-03] MEDS ORDERED: NA CHLORIDE 0.9% 1,000 ML ONE (05:39)
[2021-05-03 05:40] LABS: Magnesium 1.8 mg/dL (1.8-2.4)
--- NOTE | 2021-05-03 07:36 | RAD REPORT ---
EXAM DESCRIPTION: RAD - Chest Single View - 05/03/2021 5:16 am CLINICAL HISTORY: possible syncope vs seizure COMPARISON: No comparisons FINDINGS: Lines: None. Lungs: No evidence of edema or pneumonia. Pleural: No significant pleural effusions or pneumothorax. Cardiac: The heart size is within normal limits. Bones: No acute fractures. Other: IMPRESSION: No acute cardiopulmonary disease.
[2021-05-03] MEDS ORDERED: POTASSIUM CL 20 MEQ in NA CHLORIDE 0.9% 100 ML IV ONE (08:00)
[2021-05-03] MEDS ORDERED: NA CHLORIDE 0.9% 250 ML ONE (08:36)
[2021-05-03] MEDS ORDERED: ACETAMINOPHEN 500 MG TAB ONE (09:01)
--- NOTE | 2021-05-03 10:30 | RAD REPORT ---
EXAM DESCRIPTION: CT - Head Brain Wo Cont - 05/03/2021 5:59 am CLINICAL HISTORY: SYNCOPE COMPARISON: None. 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 FINDINGS: There is no acute hemorrhage, mass effect or midline shift. Stahl-white differentiation is preserved. There is no hydrocephalus. There is mild bifrontal cerebral atrophy. The calvarium is intact. Orbits and globes are unremarkable. The paranasal sinuses are clear. Mastoid air cells are clear. IMPRESSION: No acute intracranial findings. 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 The interpreting r adiologist is fully responsible for the content of the report.
--- NOTE | 2021-05-03 12:31 | ER ---
Nurse's Notes [facility] Name: Nelsy Hernández Age: 40 yrs Sex: Female : 1980 Arrival Date: 05/03/2021 Time: 03:49 Bed 3 Private MD: Diagnosis: Syncope Near;Hypokalemia;Hypomagnesemia;Unspecified injury of head, initial encounter;Contusion of scalp Presentation: 05/03 03:53 Chief complaint: EMS states: Pt got up from bed to go to the bathroom and knocked into her dresser and fell. S.O. she 'went limp' then tightened up, then he helped her up, got her to the bathroom, where she collapsed again. S.o. reports she 'tightened up' for 3-5 seconds, then was out for 'maybe 20-30 seconds', denies pmhx or similar episodes in the past. Coronavirus screen: Vaccine status: Patient reports receiving the 2nd dose of the covid vaccine. Ebola Screen: Patient negative for fever greater than or equal to 101.5 degrees Fahrenheit, and additional compatible Ebola Virus Disease symptoms. Initial Sepsis Screen: Does the patient meet any 2 criteria? No. Patient's initial sepsis screen is negative. Does the patient have a suspected source of infection? No. Patient's initial sepsis screen is negative. Risk Assessment: Do you want to hurt yourself or someone else? Patient reports no desire to harm self or others. Onset of symptoms was May 03, 2021 at 03:11. 03:53 Method Of Arrival: EMS: [facility] 03:53 Acuity: CRISTINA 3 mk Historical: - Allergies: 07:32 No Known Allergies; bp - Home Meds: 07:32 Imitrex Oral [Active]; sumatriptan inhaler [Active]; bp - PMHx: 07:32 Depression; insomnia; Migraine; bp - Immunization history:: Adult Immunizations unknown. - Family history:: not pertinent. - Social history:: Smoking status: Patient reports the use of cigarette tobacco products, denies chronic smoking, but will smoke occasionally. - Hospitalizations: : No recent hospitalization is reported. Screenin:41 Abuse screen: Denies threats or abuse. Nutritional screening: No deficits noted. sf1 Tuberculosis screening: No symptoms or risk factors identified. Fall Risk None identified. Assessment: 06:41 General: Appears uncomfortable, Behavior is cooperative, anxious. Pain: Complains of sf1 pain in right parietal area. Neuro: No deficits noted. Cardiovascular: No deficits noted. Respiratory: No deficits noted. GI: No deficits noted. : No deficits noted. 07:00 Reassessment: RECD REPORT FROM OBDULIO CHIRINOS. 4OYO WF P/W NEAR-SYNCOPE. KCL PENDING FROM bp PHARMACY. PT HAS H/O HYPOKALEMIA. 08:58 Reassessment: Pt c/o of h/a 10/22. Received VO from Dr Watson to administer Tylenol 1 g vg1 PO. 10:01 Reassessment: Patient appears in no apparent distress at this time. pt resting with vg1 eyes closed. 11:36 Reassessment: Patient appears in no apparent distress at this time. Patient and/or vg1 family updated on plan of care and expected duration. Pain level reassessed. Patient is alert, oriented x 3, equal unlabored respirations, skin warm/dry/pink. 12:59 Reassessment: PT D/C HOME AMBULATORY WITH FAMILY, DX WITH HYPOKALEMIA. bp Vital Signs: 03:53 BP 95 / 69; Pulse 88; Resp 18; Temp 98.1; Pulse Ox 98% on R/A; mk 06:40 BP 100 / 57; Pulse 79; Resp 18; Pulse Ox 100% on R/A; sf1 07:32 BP 105 / 64; Pulse 68; Resp 20; Pulse Ox 95% ; bp 08:30 BP 94 / 60; Pulse 69; Resp 14; Pulse Ox 98% ; bp 10:01 BP 109 / 60; Pulse 90; Resp 16; Pulse Ox 98% ; vg1 11:00 BP 97 / 69; Pulse 90; Resp 15; Pulse Ox 98% ; bp 12:00 BP 96 / 73; Pulse 91; Resp 16; Pulse Ox 98% ; bp 12:30 BP 102 / 55; Pulse 72; Resp 12; Pulse Ox 97% ; bp ED Course: 03:49 Patient arrived in ED. wm 03:53 George Carranza MD is Attending Physician. rn 04:03 Triage completed. mk 04:04 Ptt, Activated Sent. mk 04:04 PT-INR Sent. mk 04:04 Hepatic Function Sent. mk 04:04 Basic Metabolic Panel Sent. mk 04:10 Magnesium Sent. mk 04:10 Liver (Hepatic) Function Sent. mk 04:10 Alcohol Serum/Plasma Sent. mk 04:10 Basic Metabolic Panel Sent. mk 04:10 CBC with Automated Diff Sent. mk 04:10 Acetaminophen Level Sent. mk 04:10 Troponin High Sensitivity Sent. mk 04:10 Acetaminophen Sent. mk 04:11 CBC with Diff Sent. mk 04:11 ETOH Level Sent. mk 04:20 CT Head Brain wo Cont In Process Unspecified. EDMS 04:45 Obdulio Bowman, RN is Primary Nurse. sf1 04:46 Urine Drug Screen Sent. sf1 05:15 XRAY Chest (1 view) In Process Unspecified. EDMS 06:41 No provider procedures requiring assistance completed. Inserted saline lock: 20 gauge sf1 in left forearm, using aseptic technique. 06:41 Bed in low position. Call light in reach. Seizure precautions initiated. sf1 08:04 Attending Physician role handed off by George Carranza MD kdr 08:04 Viral Watson MD is Attending Physician. kdr 13:00 IV discontinued, intact, bleeding controlled, No redness/swelling at site. Pressure bp dressing applied. 13:01 Arm band placed on. bp Administered Medications: 04:46 Drug: NS 0.9% 1000 ml Route: IV; Rate: 1000 ml; Site: left forearm; sf1 05:41 Drug: NS 0.9% 1000 ml Route: IV; Rate: 1000 ml; Site: left forearm; sf1 10:26 Follow up: IV Status: Completed infusion; IV Intake: 1000ml vg1 05:41 Drug: Ketorolac 15 mg Route: IVP; Site: left forearm; sf1 13:01 Follow up: Response: No adverse reaction; Pain is decreased bp 06:20 Drug: Magnesium Sulfate 2 grams Route: IVPB; Infused Over: 2 hrs; Site: left forearm; sf1 10:27 Follow up: IV Status: Completed infusion vg1 08:41 Drug: Potassium Chloride 20 mEq Route: IV; Rate: calculated rate; Site: left forearm; vg1 10:26 Follow up: IV Status: Completed infusion; IV Intake: 110ml vg1 09:03 Drug: Tylenol 1000 mg Route: PO; vg1 10:27 Follow up: Response: No adverse reaction; Marked relief of symptoms vg1 Intake: 10:26 IV: 1000ml; Total: 1000ml. vg1 10:26 IV: 110ml; Total: 1110ml. vg1 Outcome: 12:30 Discharge ordered by . kdr 13:00 Discharged to home ambulatory, with family. bp 13:00 Condition: stable 13:00 Discharge instructions given to patient, Instructed on discharge instructions, follow up and referral plans. Demonstrated understanding of instructions, follow-up care. 13:01 Patient left the ED. bp Signatures: Dispatcher [employer] EDMS Viral Watson MD MD kdr Nieto, Roman, MD MD rn Feliciano Moser, RN RN Clarice Rizo RN RN vg1 Shannan Wakefiled Madeline, RN RN mk Fillers, Samantha RN RN sf1 Corrections: (The following items were deleted from the chart) 04:16 04:10 CREATINE PHOSPHOKINASE+C.LAB.EDU drawn and sent. zenobia MORLEY
--- NOTE | 2021-05-03 12:31 | EDPHYS ---
Physician Documentation [facility] Name: Nelsy Hernández Age: 40 yrs Sex: Female : 1980 Arrival Date: 05/03/2021 Time: 03:49 Bed 3 Private MD: ED Physician Viral Watson HPI: 05/03 05:30 This 40 yrs old Female presents to ER via EMS with complaints of syncope, possible rn seizure, cramps. 05:30 The patient has experienced syncope, collapsed. Onset: The symptoms/episode rn began/occurred just prior to arrival. Duration: The patient has had multiple episodes, that last 30 second(s). Associated injury: Head/face: right occipital area, contusion, pain. Associated signs and symptoms: Pertinent positives: headache, Pertinent negatives: abdominal pain, chest pain, palpitations, not shortness of breath, vomiting. Current symptoms: headache, weakness. The patient has not experienced similar symptoms in the past. The patient has not recently seen a physician. Significant other reports patient had stood up at home, somehow hit her head on a dresser and collapsed to the ground. States she was on the ground with head against the wall and "locked up "for a few seconds. He tried to sit her up and did the same thing for another few seconds. Denies recent fever or illness. Patient has history of migraines but denies headache prior to hitting head. No known seizure disorder. Has had problems with low potassium before. Not .. Historical: - Allergies: 07:32 No Known Allergies; bp - Home Meds: 07:32 Imitrex Oral [Active]; sumatriptan inhaler [Active]; bp - PMHx: 07:32 Depression; insomnia; Migraine; bp - Immunization history:: Adult Immunizations unknown. - Family history:: not pertinent. - Social history:: Smoking status: Patient reports the use of cigarette tobacco products, denies chronic smoking, but will smoke occasionally. - Hospitalizations: : No recent hospitalization is reported. ROS: 05:30 Constitutional: Negative for fever, chills, and weight loss, Eyes: Negative for injury, rn pain, redness, and discharge, Neck: Negative for injury, pain, and swelling, Cardiovascular: Negative for chest pain, palpitations, and edema, Respiratory: Negative for shortness of breath, cough, wheezing, and pleuritic chest pain, Abdomen/GI: Negative for abdominal pain, nausea, vomiting, diarrhea, and constipation, Back: Negative for injury and pain, : Negative for injury, bleeding, discharge, and swelling, MS/Extremity: Negative for injury and deformity, Skin: Negative for injury, rash, and discoloration, Neuro: Positive for headache Exam: 05:30 Constitutional: This is a well developed, well nourished patient who is awake, alert, rn seems fidgety Head/Face: Right occiput with small hematoma, no skull depression, no crepitus, no laceration or active bleeding Eyes: Periorbital areas with no swelling, redness, or edema. Pupils equally round and reactive to light. No nystagmus. ENT: Dry mucous membranes Neck: No midline cervical tenderness, no meningismus Cardiovascular: Regular rate and rhythm. No pulse deficits. Respiratory: No increased work of breathing, no retractions or nasal flaring. Abdomen/GI: Soft, non-tender Skin: Warm, dry, no rashes MS/ Extremity: Pulses equal, no cyanosis. Neurovascular intact. Full, normal range of motion. Equal circumference. Neuro: Awake and alert, GCS 15, oriented to person, place, and situation. Cranial nerves II-XII grossly intact. Motor strength 4-/5 in all extremities. Sensory grossly intact. Vital Signs: 03:53 BP 95 / 69; Pulse 88; Resp 18; Temp 98.1; Pulse Ox 98% on R/A; mk 06:40 BP 100 / 57; Pulse 79; Resp 18; Pulse Ox 100% on R/A; sf1 07:32 BP 105 / 64; Pulse 68; Resp 20; Pulse Ox 95% ; bp 08:30 BP 94 / 60; Pulse 69; Resp 14; Pulse Ox 98% ; bp 10:01 BP 109 / 60; Pulse 90; Resp 16; Pulse Ox 98% ; vg1 11:00 BP 97 / 69; Pulse 90; Resp 15; Pulse Ox 98% ; bp 12:00 BP 96 / 73; Pulse 91; Resp 16; Pulse Ox 98% ; bp 12:30 BP 102 / 55; Pulse 72; Resp 12; Pulse Ox 97% ; bp MDM: 03:53 Patient medically screened. rn 06:49 Transition of care: After a detail discussion of the patient's case, care is rn transferred to Viral Watson MD. 09:13 Data reviewed: vital signs, nurses notes, lab test result(s), radiologic studies. kdr Counseling: I had a detailed discussion with the patient and/or guardian regarding: the historical points, exam findings, and any diagnostic results supporting the discharge/admit diagnosis, lab results, radiology results. ED course: Patient continues to be stable in the ED. She has not had any further altered mental status. Her current complaint is primarily of headache. The earlier noted hypokalemia has now been dressed with the start of a potassium infusion. That is scheduled to run over the next 1-1/2 to 2 hours. After such time the potassium level will be reassessed as well as the patient. Patient was given Tylenol for headache at this time and she had no other complaints. 05/03 04:02 Order name: Acetaminophen rn 05/03 04:02 Order name: Basic Metabolic Panel rn 05/03 04:02 Order name: CBC with Diff rn 05/03 04:02 Order name: ETOH Level rn 05/03 04:02 Order name: Hepatic Function rn 05/03 04:02 Order name: PT-INR; Complete Time: 04:50 rn 05/03 04:02 Order name: Ptt, Activated; Complete Time: 04:50 rn 05/03 04:02 Order name: Salicylate; Complete Time: 04:50 rn 05/03 04:02 Order name: Urine Drug Screen; Complete Time: 05:20 rn 05/03 04:02 Order name: Troponin High Sensitivity; Complete Time: 06:24 rn 05/03 04:02 Order name: Acetaminophen Level; Complete Time: 06:24 EDNC 05/03 04:02 Order name: Basic Metabolic Panel; Complete Time: 06:24 EDNC 05/03 04:02 Order name: CBC with Automated Diff; Complete Time: 04:50 EDMS 05/03 04:02 Order name: Alcohol Serum/Plasma; Complete Time: 04:50 EDMS 05/03 04:02 Order name: CT Head Brain wo Cont; Complete Time: 12:25 rn 05/03 04:02 Order name: Liver (Hepatic) Function; Complete Time: 06:24 EDMS 05/03 04:03 Order name: Magnesium; Complete Time: 06:24 rn 05/03 04:05 Order name: COVID-19/FLU A+B (Document "Date of Onset" if Symptomatic); Complete Time: rn 05:20 05/03 04:16 Order name: Creatine Phosphokinase; Complete Time: 06:24 EDMS 05/03 04:18 Order name: XRAY Chest (1 view); Complete Time: 08:18 rn 05/03 04:38 Order name: Urine Dipstick-Ancillary; Complete Time: 04:50 EDMS 05/03 04:41 Order name: Urine --Ancillary (enter results); Complete Time: 04:50 lp1 05/03 10:38 Order name: Potassium; Complete Time: 12:25 vg1 05/03 04:02 Order name: EKG; Complete Time: 04:03 rn 05/03 04:02 Order name: EKG - Nurse/Tech; Complete Time: 04:04 rn 05/03 04:02 Order name: IV Saline Lock; Complete Time: 04:04 rn 05/03 04:02 Order name: Labs collected and sent; Complete Time: 04:04 rn 05/03 04:02 Order name: Urine Dipstick-Ancillary (obtain specimen); Complete Time: 04:46 rn 05/03 04:02 Order name: Urine Test (obtain specimen); Complete Time: 04:46 rn Administered Medications: 04:46 Drug: NS 0.9% 1000 ml Route: IV; Rate: 1000 ml; Site: left forearm; sf1 05:41 Drug: NS 0.9% 1000 ml Route: IV; Rate: 1000 ml; Site: left forearm; sf1 10:26 Follow up: IV Status: Completed infusion; IV Intake: 1000ml vg1 05:41 Drug: Ketorolac 15 mg Route: IVP; Site: left forearm; sf1 13:01 Follow up: Response: No adverse reaction; Pain is decreased bp 06:20 Drug: Magnesium Sulfate 2 grams Route: IVPB; Infused Over: 2 hrs; Site: left forearm; sf1 10:27 Follow up: IV Status: Completed infusion vg1 08:41 Drug: Potassium Chloride 20 mEq Route: IV; Rate: calculated rate; Site: left forearm; vg1 10:26 Follow up: IV Status: Completed infusion; IV Intake: 110ml vg1 09:03 Drug: Tylenol 1000 mg Route: PO; vg1 10:27 Follow up: Response: No adverse reaction; Marked relief of symptoms vg1 Disposition Summary: 05/03/21 12:30 Discharge Ordered Location: Home kdr Problem: new kdr Symptoms: have improved kdr Condition: Stable kdr Diagnosis - Syncope Near kdr - Hypokalemia kdr - Hypomagnesemia kdr - Unspecified injury of head, initial encounter kdr - Contusion of scalp kdr Followup: kdr - With: Private Physician - When: 2 - 3 days - Reason: If symptoms return, Further diagnostic work-up, Recheck today's complaints, Continuance of care, Re-evaluation by your physician Discharge Instructions: - Discharge Summary Sheet kdr - Hypomagnesemia kdr - Syncope, [id number] kdr - Head Injury, Adult, [id number] kdr - Hypokalemia kdr Forms: - Medication Reconciliation Form kdr - Thank You Letter kdr - Work release form bd - Family Work Release bd Signatures: Dispatcher [employer] EDMS Viral Watson MD MD kdr Nieto, Roman, MD MD rn Carola, Oscar, PRECISION GRINDER-C PRECISION GRINDER-Cla1 Feliciano Moser RN RN bp Garcia, Victoria RN RN vg1 Yovanis, TARAN Moser RN sf1 Corrections: (The following items were deleted from the chart) 04:16 04:05 CREATINE PHOSPHOKINASE+C.LAB.BRZ ordered. EDNC EDMS 05:40 05:30 Constitutional: This is a well developed, well nourished patient who is awake, rn alert, seems fidgety rn
[2021-05-03 13:14] VITALS: TEMP 98.1
[2021-05-03 13:29] VITALS: BP 102/55; O2SAT 97
== END 2021-05-03 13:01 | disposition home or self-care (01) ==
LOC: ER 03:47
DX: E87.6 Hypokalemia (principal); E83.42 Hypomagnesemia; S00.03XA Contusion of scalp, initial encounter; F32.A Depression, unspecified; F17.210 Nicotine dependence, cigarettes, uncomplicated; Z20.822 Contact with and (suspected) exposure to COVID-19
CPT/HCPCS: 0240U; 36415; 70450; 71045; 80048; 80076; 80307; 80320; 80329; 81003; 81025; 82550; 83735; 84132; 84484; 85025; 85610; 85730; 93005; 96361; 96365; 96366; 96375; 99284; J3475; J3480; J7030; J7050

== ENCOUNTER 2023-03-21 08:36 | Emergency (ER) | payer OTHER ==
--- OUTSIDE RECORDS SUMMARY | 2023-03-21 08:39 | XMS REPORT | Continuity of Care Document ---
Author Name Unknown Address [address] [facility] [address] [place] [address] [facility] thconnect Address [address] [facility] [address] [place] [address] Care Team Providers Care Facilities Technician Name Role Phone Pcp, Patient Does Not Have A Primary Care Physic thania GC_MARTAG_Mendoza_Hansa Attending Clinician Unavailable Rosie Levine Attending Clinician Sonya vailable AbnerEdini Rodrigo Attending Clinician + [phone] GC_SWOBGYN_Foreign_J Attending Clinician Unavail able Theodora Robles Attending Clinician + [phone] Geoff Canales Attending Clinician [phone] GEOFF WALTON Attending Clinician Unavailable Duane Ray MD Attending Clinician [phone] DUANE RAY Attending Clinician Unavailable Doctor Unassigned, [place] Attending Clinician U navailable GC_LMG_Compterrell_B Admitting Clinician Unavailable Abner Rosie Wallace Admitting Clinician Sonya vailable GC_SWOBGYN_Foreign_J Admitting Clinician Unavail able Payers Payer Name Policy Type Policy Number Effective Date Expirati on Date Source [employer] - CHOICE (POS II) [id number] 2021 00:00:00 Problems Condition Name Condition Details Condition Category Status Onset Date Resolution Date Last Treatment Date Treating Clinician Comments Source Anxiety Anxiety Problem Active 10-12 00:00: 00 [facility] Chest pain Chest pain Disease Active 08-05 00:00: 00 [facility] Allergies, Adverse Reactions, Alerts Allergy Name Allergy Type Status Severity Reaction(s) Onset Date Inactive Date Treating Clinician Comments Source NO KNOWN ALLERGIE S Drug Class Active [facility] Social History Social Habit Start Date Stop Date Quantity Comments Source History of tobacco use Cigarette Smoker [facility] Exposure to SARS-CoV-2 (event) Not sure [facility] Alcohol intake 2021-01-10 00:00:00 2021-01-10 00:00:00 0 /d [facility] Cigarettes smoked current (pack per day) - Reported 2020-11-12 00:00:00 2020-11-12 00:00:00 [facility] Cigarette pack-years 2020-11-12 00:00:00 2020-11-12 00:00:00 [facility] Tobacco use and exposure 2020-11-12 00:00:00 2020-11-12 00:00:00 Never used [facility] Sex Assigned At 1980 00:00:00 1980 00:00:00 [facility] Smoking Status Start Date Stop Date Source Light Tobacco Smoker [facility] Former smoker 2020-11-12 00:00:00 2020-11-12 00:00:00 [facility] Medications Ordered Medication Name Filled Medication Name Start Date Stop Date Current Medication? Ordering Clinician Indication Dosage Frequency Signature (SIG) Comments Components Source ALPRAZolam (XANAX) 0.5 mg tablet 01-10 09:44: 29 Yes .5mg Take 0.5 mg by mouth 3 (three) times daily. [facility] SUMATRIPTAN SUCCINATE (IMITREX ORAL) 01-10 09:44: 08 Yes Take by mouth as needed for Headache. [facility] ondansetron 4 mg tablet 01-10 00:00: 00 01-16 04:59 :00 No [id number] 4mg Take 1 tablet by mouth every 8 (eight) hours as needed for Nausea and Vomiting (N/V) for up to 5 days. [facility] metoclopram naty HCl 10 mg tablet 11-12 00:00: 00 Yes [id number] 1 tab every 4hr as needed for nausea [facility] acetaminoph en-codeine 300-30 mg tablet 11-12 00:00: 00 Yes [id number] 1/2 - 1 tab Every 4hrs as needed for pain or cough requiring narcotic Indication s: acute pain [facility] metoclopram naty HCl 10 mg tablet 11-12 00:00: 00 Yes [id number] 1 tab every 4hr as needed for nausea [facility] acetaminoph en-codeine 300-30 mg tablet 11-12 00:00: 00 Yes 4647 1/2 - 1 tab Every 4hrs as needed for pain or cough requiring narcotic Indication s: acute pain [facility] metoclopram naty HCl 10 mg tablet 11-12 00:00: 00 Yes [id number] 1 tab every 4hr as needed for nausea [facility] acetaminoph en-codeine 300-30 mg tablet 11-12 00:00: 00 Yes 4647 1/2 - 1 tab Every 4hrs as needed for pain or cough requiring narcotic Indication s: acute pain [facility] cephALEXin 500 mg tablet 11-12 00:00: 00 11-18 04:59 :00 No [id number] 500mg Take 1 tablet by mouth 2 (two) times daily for 5 days. May use capsules [facility] cephALEXin 500 mg tablet 11-12 00:00: 00 11-18 04:59 :00 No [id number] 500mg Take 1 tablet by mouth 2 (two) times daily for 5 days. May use capsules [facility] SUMATRIPTAN SUCCINATE (IMITREX ORAL) 08-11 20:46: 13 Yes Take by mouth as needed for Headache. [facility] SUMATRIPTAN SUCCINATE (IMITREX ORAL) 08-11 20:46: 13 Yes Take by mouth as needed for Headache. [facility] SUMATRIPTAN SUCCINATE (IMITREX ORAL) 08-11 20:46: 13 Yes Take by mouth as needed for Headache. [facility] ARIPiprazol e (ABILIFY) 5 mg tablet 08-11 00:00: 00 Yes 2.5mg Take 0.5 tablets by mouth at bedtime. [facility] escitalopra m oxalate (LEXAPRO) 10 mg tablet 08-11 00:00: 00 Yes 10mg Take 1 tablet by mouth daily. [facility] zolpidem (AMBIEN) 10 mg tablet 08-11 00:00: 00 Yes 10mg Take 1 tablet by mouth at bedtime as needed for Insomnia. [facility] clonazePAM (KLONOPIN) 0.5 mg tablet 08-11 00:00: 00 Yes .25mg Take 0.5 tablets by mouth 2 (two) times daily as needed (anxiety). [facility] ARIPiprazol e (ABILIFY) 5 mg tablet 08-11 00:00: 00 Yes 2.5mg Take 0.5 tablets by mouth at bedtime. [facility] escitalopra m oxalate (LEXAPRO) 10 mg tablet 08-11 00:00: 00 Yes 10mg Take 1 tablet by mouth daily. [facility] zolpidem (AMBIEN) 10 mg tablet 08-11 00:00: 00 Yes 10mg Take 1 tablet by mouth at bedtime as needed for Insomnia. [facility] clonazePAM (KLONOPIN) 0.5 mg tablet 08-11 00:00: 00 Yes .25mg Take 0.5 tablets by mouth 2 (two) times daily as needed (anxiety). [facility] ARIPiprazol e (ABILIFY) 5 mg tablet 08-11 00:00: 00 Yes 2.5mg Take 0.5 tablets by mouth at bedtime. [facility] escitalopra m oxalate (LEXAPRO) 10 mg tablet 08-11 00:00: 00 Yes 10mg Take 1 tablet by mouth daily. [facility] zolpidem (AMBIEN) 10 mg tablet 08-11 00:00: 00 Yes 10mg Take 1 tablet by mouth at bedtime as needed for Insomnia. [facility] clonazePAM (KLONOPIN) 0.5 mg tablet 08-11 00:00: 00 Yes .25mg Take 0.5 tablets by mouth 2 (two) times daily as needed (anxiety). [facility] ARIPiprazol e (ABILIFY) 5 mg tablet 08-11 00:00: 00 Yes 2.5mg Take 0.5 tablets by mouth at bedtime. [facility] escitalopra m oxalate (LEXAPRO) 10 mg tablet 08-11 00:00: 00 Yes 10mg Take 1 tablet by mouth daily. [facility] zolpidem (AMBIEN) 10 mg tablet 08-11 00:00: 00 Yes 10mg Take 1 tablet by mouth at bedtime as needed for Insomnia. [facility] clonazePAM (KLONOPIN) 0.5 mg tablet 08-11 00:00: 00 Yes .25mg Take 0.5 tablets by mouth 2 (two) times daily as needed (anxiety). [facility] acetaminoph en 300 mg-codeine 30 mg tablet TAKE 1 TABLET BY MOUTH EVERY 6 HOURS acetaminoph en 300 mg-codeine 30 mg tablet TAKE 1 TABLET BY MOUTH EVERY 6 HOURS No acetaminop hen 300 mg-codeine 30 mg tablet TAKE 1 TABLET BY MOUTH EVERY 6 HOURS [facility] alprazolam 1 mg tablet TAKE 1 TABLET BY MOUTH TWICE A DAY alprazolam 1 mg tablet TAKE 1 TABLET BY MOUTH TWICE A DAY No alprazolam 1 mg tablet TAKE 1 TABLET BY MOUTH TWICE A DAY [facility] atorvastati n 20 mg tablet TAKE 1 TABLET BY MOUTH EVERY DAY atorvastati n 20 mg tablet TAKE 1 TABLET BY MOUTH EVERY DAY No atorvastat in 20 mg tablet TAKE 1 TABLET BY MOUTH EVERY DAY [facility] omeprazole 40 mg capsule,del ayed release TAKE 1 CAPSULE BY MOUTH EVERY DAY omeprazole 40 mg capsule,del ayed release TAKE 1 CAPSULE BY MOUTH EVERY DAY No omeprazole 40 mg capsule,de layed release TAKE 1 CAPSULE BY MOUTH EVERY DAY [facility] phentermine 37.5 mg tablet TAKE 1 TABLET BY MOUTH EVERY DAY IN THE MORNING phentermine 37.5 mg tablet TAKE 1 TABLET BY MOUTH EVERY DAY IN THE MORNING No phentermin e 37.5 mg tablet TAKE 1 TABLET BY MOUTH EVERY DAY IN THE MORNING [facility] sumatriptan 100 mg tablet TAKE 1 TABLET BY MOUTH EVERY DAY NEEDED sumatriptan 100 mg tablet TAKE 1 TABLET BY MOUTH EVERY DAY NEEDED No sumatripta n 100 mg tablet TAKE 1 TABLET BY MOUTH EVERY DAY NEEDED [facility] sumatriptan 20 mg/actuatio n nasal spray 1 NASAL SPRAY EVERY DAY NEEDED sumatriptan 20 mg/actuatio n nasal spray 1 NASAL SPRAY EVERY DAY NEEDED No sumatripta n 20 mg/actuati on nasal spray 1 NASAL SPRAY EVERY DAY NEEDED [facility] torsemide 20 mg tablet TAKE 1 TABLET BY MOUTH EVERY DAY torsemide 20 mg tablet TAKE 1 TABLET BY MOUTH EVERY DAY No torsemide 20 mg tablet TAKE 1 TABLET BY MOUTH EVERY DAY [facility] zolpidem 10 mg tablet TAKE 1 TABLET BY MOUTH AT BEDTIME NEEDED zolpidem 10 mg tablet TAKE 1 TABLET BY MOUTH AT BEDTIME NEEDED No zolpidem 10 mg tablet TAKE 1 TABLET BY MOUTH AT BEDTIME NEEDED [facility] Vital Signs Vital Name Observation Time Observation Value Comments S ource BP Diastolic 2021-10-12 00:00:00 82 mm[Hg] [facility] Height 2021-10-12 00:00:00 65 [in_i] [facility] BMI (Body Mass Index) 2021-10-12 00:00:00 31.3 kg/m2 [facility] BP Systolic 2021-10-12 00:00:00 121 mm[Hg] [facility] Body Weight 2021-10-12 00:00:00 188.2 [lb_av] [facility] Systolic blood pressure 2021-01-10 14:42:00 127 mm[Hg] [facility] Diastolic blood pressure 2021-01-10 14:42:00 79 mm[Hg] [facility] Heart rate 2021-01-10 14:42:00 112 /min [facility] Body temperature 2021-01-10 14:42:00 36.17 Porsche [facility] Respiratory rate 2021-01-10 14:42:00 18 /min [facility] Body height 2021-01-10 14:42:00 165.1 cm [facility] Body weight 2021-01-10 14:42:00 79.379 kg [facility] BMI 2021-01-10 14:42:00 29.12 kg/m2 [facility] Oxygen saturation in Arterial blood by Pulse oximetry 2021-01-10 14:42:00 99 /min [facility] Systolic blood pressure 2020-11-12 22:38:00 115 mm[Hg] [facility] Diastolic blood pressure 2020-11-12 22:38:00 81 mm[Hg] [facility] Heart rate 2020-11-12 22:38:00 134 /min [facility] Body temperature 2020-11-12 22:38:00 36.83 [employer]orsche [facility] Body height 2020-11-12 22:38:00 167.6 cm [facility] Body weight 2020-11-12 22:38:00 83.915 kg [facility] BMI 2020-11-12 22:38:00 29.86 kg/m2 [facility] Oxygen saturation in Arterial blood by Pulse oximetry 2020-11-12 22:38:00 99 /min [facility] Procedures Procedure Date / Time Performed Performing Clinician Source MAMMO, screening, digital, bilateral 2021-10-12 00:00:00 [facility] URINALYSIS MICROSCOPIC 2020-11-13 00:17:00 Bart Ray [facility] POCT URINALYSIS 2020-11-13 00:13:00 [facility] 2020-11-12 22:21:26 Docto r Unassigned, [place] [facility] Breast Surgery - Augmentation [facility] Plan of Care Planned Activity Planned Date Details Comments Source Diagnostic Test Pending 2021-10-12 00:00:00 pap, LB + HR HPV + reflex HPV (16+18) [code = pap, LB + HR HPV + reflex HPV (16+18)] [facility] Instructions [facility] Encounters Start Date/Time End Date/Time Encounter Type Admission Type Attending Clinicians Care Facility Care Department Encounter ID Source 2021-11-08 00:00:00 2021-11-08 00:00:00 Outpatient GC_LMG_Comp ton_B PRIV PRIV [id number] [facility] 2021-10-13 08:00:00 2021-10-13 08:00:00 Outpatient Rosie Wells [facility] [id number] [facility] [place] 2021-10-12 12:06:00 2021-10-12 12:06:00 Outpatient GC_LMG_Comp ton_B PRIV PRIV [id number] [facility] 2021-10-12 00:00:00 2021-10-12 00:00:00 Outpatient Rosie Araujo PRIV [id number] 2021-10-12 00:00:00 2021-10-12 00:00:00 Rosie rodriguez MD: [id number] [place] [address] , Ph. [facility] - GC_LMG_Suga [facility] Office* [id number] [facility] 2021-10-11 10:16:00 2021-10-11 10:16:00 Outpatient GC_SWOBGYN_ Arvindharmony_J [facility] [id number] [facility] 2021-09-18 05:39:00 2021-09-18 05:39:00 Outpatient GC_LMG_Comp ton_B [facility] [id number] [facility] 2021-09-18 05:39:00 2021-09-18 05:39:00 Outpatient GC_LMG_Comp ton_B [facility] [id number] [facility] 2021-01-10 09:39:36 2021-01-10 10:12:23 Urgent Care Theodora Flores [facility] [id number] [facility] 2021-01-10 09:40:00 2021-01-10 09:40:00 Outpatient GEOFF PARRA [facility] [id number] [facility] 2020-11-12 17:22:14 2020-11-12 19:46:41 [facility] [id number] [facility] 2020-11-12 17:20:00 2020-11-12 17:20:00 Outpatient DUANE HARPER [facility] [id number] [facility] 2020-11-12 00:00:00 2020-11-12 00:00:00 Orders Only Doctor Unassigned, [place] [facility] [id number] [facility] Results Test Description Test Time Test Comments Results Result Co mments Source [facility] [id number] 00:15:00* Test Item Value Reference Range Interpretation Comme nts POCT U SP GRAV (test code = 3255) 1.020 mg/dl 1.005-1.025 POCT PH U (test code = 3254) 5 mg/dl 5-8 POCT U LEUK EST (test code = 3263) + Negative - Negative POCT U NIT (test code = 3262) negative Negative - Negative POCT U PROT (test code = 3259) trace Negative - Negative POCT U GLU (test code = 3256) negative Negative - Negative POCT U KETONE (test code = 3258) negative Negative - Negative POCT U UROBILI (test code = 3260) normal 0.2-1 POCT U BILI (test code = 3261) negative Negative - Negative POCT U BLD (test code = 3257) about 250Ery/uL Negative - Negative POCT U COLOR (test code = 3266) yellow POCT U APPEAR (test code = 3267) clear PELON (test code = PELON) accurate developme nt and interpretation of all internal controls Lab Interpretation (test code = 47009-7) Abnormal [facility] URINALYSIS W SPECIFIC [id number] 00:15:00* Test Item Value Reference Range Interpretation Comme nts POCT U SP GRAV (test code = 3255) 1.020 mg/dl 1.005-1.025 POCT PH U (test code = 3254) 5 mg/dl 5-8 POCT U LEUK EST (test code = 3263) + Negative - Negative POCT U NIT (test code = 3262) negative Negative - Negative POCT U PROT (test code = 3259) trace Negative - Negative POCT U GLU (test code = 3256) negative Negative - Negative POCT U KETONE (test code = 3258) negative Negative - Negative POCT U UROBILI (test code = 3260) normal 0.2-1 POCT U BILI (test code = 3261) negative Negative - Negative POCT U BLD (test code = 3257) about 250Ery/uL Negative - Negative POCT U COLOR (test code = 3266) yellow POCT U APPEAR (test code = 3267) clear PELON (test code = PELON) accurate developme nt and interpretation of all internal controls Lab Interpretation (test code = 88497-0) Abnormal [facility]
[2023-03-21 09:52] LABS: Specific Gravity 1.022 (1.005-1.030)
[2023-03-21 09:52] LABS: Absolute Lymphocytes (CBC) 2.2 K/uL (0.7-4.9); Hematocrit 39.3 % (36.0-45.0); Lymphocytes % 19.2 % (15.3-44.8); MPV 7.3 fL (7.6-11.3); Platelets 342 thou/uL (152-406); RBC Red Blood Cell Count 4.62 M/uL (3.86-4.86)
[2023-03-21 10:02] LABS: Specific Gravity 1.022 (1.005-1.030); Urine Bacteria 20-50 /HPF (<20); Urine Bilirubin NEGATIVE (Negative); Urine Blood 1+ (Negative); Urine Clarity Extremely Turbid (Clear); Urine Color Yellow (Yellow); Urine Glucose NEGATIVE (Negative); Urine Mucus Slight /HPF (None Seen); Urine Protein TRACE (Negative); Urine Urobilinogen Normal (Normal); Urine WBC Clump Few /HPF (None Seen)
[2023-03-21 10:08] LABS: Potassium 2.8 mEq/L (3.5-5.1)
[2023-03-21] MEDS ORDERED: methocarbamoL 500 MG TAB ONE (10:19)
[2023-03-21] MEDS ORDERED: predniSONE 20 MG TAB ONE (10:19)
[2023-03-21] MEDS ORDERED: KETOROLAC 30 MG/ML INJ ONE (10:19)
--- NOTE | 2023-03-21 10:20 | ER ---
Nurse's Notes [facility] Name: Nelsy Hernández Age: 42 yrs Sex: Female : 1980 Arrival Date: 03/21/2023 Time: 08:36 Bed 10 Private MD: Diagnosis: UTI/ Urinary tract infection, site not specified;Pain in left leg;Hypokalemia Presentation: 03/21 08:55 Chief complaint: Patient states: is having pain in left leg from lower back to calf, iw pain started a couple weeks ago , pain getting worse over past couple days, denies injury , and feels like she has a UTI , is having burning with urination since 2 days ago. Coronavirus screen: At this time, the client does not indicate any symptoms associated with coronavirus-19. Ebola Screen: Patient negative for fever greater than or equal to 101.5 degrees Fahrenheit, and additional compatible Ebola Virus Disease symptoms Patient denies exposure to infectious person. Patient denies travel to an Ebola-affected area in the 21 days before illness onset. No symptoms or risks identified at this time. Initial Sepsis Screen: Does the patient meet any 2 criteria? No. Patient's initial sepsis screen is negative. Does the patient have a suspected source of infection? No. Patient's initial sepsis screen is negative. Risk Assessment: Do you want to hurt yourself or someone else? Patient reports no desire to harm self or others. Onset of symptoms was March 19, 2023. 08:55 Method Of Arrival: Ambulatory iw 08:55 Acuity: CRISTINA 3 iw Historical: - Allergies: 08:57 No Known Allergies; iw - Home Meds: 08:57 Xanax Oral [Active]; Ambien Oral [Active]; sumatriptan oral [Active]; iw - PMHx: 08:57 Depression; insomnia; Migraine; iw - PSHx: 08:57 gastric sleeve; iw - Social history:: Smoking status: . Assessment: 09:45 General: Appears in no apparent distress. Behavior is calm, cooperative. Pain: iw Complains of pain in left low back. Vital Signs: 08:55 BP 95 / 72; Pulse 94; Resp 16; Temp 98.2; Weight 69.85 kg; Height 5 ft. 5 in. ; Pain iw 12/23; 08:55 Body Mass Index 25.63 (69.85 kg, 165.1 cm) iw 08:55 Pain Scale: Adult iw ED Course: 08:38 Patient arrived in ED. rg4 08:57 Triage completed. iw 08:58 Arm band placed on. iw 09:02 Jhonny Connell MD is Attending Physician. ec2 09:45 Inserted saline lock: 22 gauge in left antecubital area, using aseptic technique. Blood iw collected. 10:02 Janet Sunshine RN is Primary Nurse. iw 10:44 No provider procedures requiring assistance completed. IV discontinued, intact, iw bleeding controlled, No redness/swelling at site. Pressure dressing applied. Administered Medications: 10:12 Drug: Methocarbamol PO 500 mg PO once Route: PO; iw 10:12 Not Given (Physician Discretion): [id number] mg IM once iw 10:12 Drug: predniSONE PO 40 mg PO once Route: PO; iw 10:12 Drug: Ketorolac IVP 15 mg IVP once Route: IVP; Site: left antecubital; iw 10:12 Drug: Ciprofloxacin PO 500 mg PO once Route: PO; iw 10:20 CANCELLED (Physician Discretion): ns 0.9% 1000 ml IV at 1 bolus Per protocol; 1000 mL ec2 bolus 10:44 Drug: Potassium Chloride PO 40 mEq PO once Route: PO; iw Outcome: 10:20 Discharge ordered by . ec2 10:44 Patient left the ED. iw Signatures: Janet Sunshine RN RN iw Chichi Haynes rg4 Johnny Connell MD MD ec2 Corrections: (The following items were deleted from the chart) 08:58 08:55 Pulse 94bpm; Resp 16bpm; Temp 98.2F; 69.85 kg; Height 5 ft. 5 in.; BMI: 25.6; iw Pain 9, Adult; iw
--- NOTE | 2023-03-21 10:20 | EDPHYS ---
Physician Documentation [facility] Name: Nelsy Hernández Age: 42 yrs Sex: Female : 1980 Arrival Date: 03/21/2023 Time: 08:36 Bed 10 Private MD: ED Physician Johnny Connell HPI: 03/21 09:15 This 42 yrs old Female presents to ER via Ambulatory with complaints of ec2 Urinary Problem, Low Back Pain, Leg Pain. 09:15 Patient arrives today due to concern for left leg pain. States that has been ec2 intermittent for the past several weeks. Reports no leg swelling. Patient reports no fevers or chills. Denies any redness or skin changes. Reports that she also has some dysuria. Also complains of intermittent low back pain. States the pain is occasionally improved with heating pads, states that she has had no specific injury or trauma, denies any red flag symptoms of the spinal cord. Patient also with complaints of bilateral upper and lower extremity paresthesias, states a history of hypokalemia.. Historical: - Allergies: 08:57 No Known Allergies; iw - Home Meds: 08:57 Xanax Oral [Active]; Ambien Oral [Active]; sumatriptan oral [Active]; iw - PMHx: 08:57 Depression; insomnia; Migraine; iw - PSHx: 08:57 gastric sleeve; iw - Social history:: Smoking status: . ROS: 09:15 Constitutional: as per hpi ec2 Exam: 09:15 Constitutional: GEN: NAD Head: atraumatic Eyes: EOMI Ears: External ears are ec2 normal. CV: regular rate LUNGS: no respiratory distress ABD: non-distended SKIN: no evidence of rashes, no lower extremity edema, no erythema, no skin changes. MSK: no evidence of trauma, bilateral lower extremities without evidence of edema, no deformities, good range of motion of the bilateral upper and lower extremities, pain with active and passive range of motion of the left thigh. NEURO: moves all extremities equally Vital Signs: 08:55 BP 95 / 72; Pulse 94; Resp 16; Temp 98.2; Weight 69.85 kg; Height 5 ft. 5 in. ; Pain iw 12/23; 08:55 Body Mass Index 25.63 (69.85 kg, 165.1 cm) iw 08:55 Pain Scale: Adult iw MDM: 09:01 Patient medically screened. ec2 09:15 Data reviewed: vital signs. ED course: Patient arrives today for evaluation of left ec2 lower extremity pain as well as dysuria. Examination remarkable for well-appearing nontoxic individual is otherwise in no acute distress. Will obtain lab work and urine studies and treat the patient's symptoms. Currently considering MSK pain given the reproducibility with range of motion, additionally considering sciatica, low suspicion for DVT or ischemia given the appearance of the leg. Additionally DVT would be less likely in the setting of intermittent symptoms and positional changes worsening symptoms. Additionally will obtain lab work to evaluate for the patient's diffuse tingling to evaluate for electrolyte disturbance. Also considering UTI.. 09:57 ED course: CBC is reassuring. Urine is negative for . . ec2 10:04 ED course: Urine is infectious appearing with leuk esterase and bacteria present, ec2 otherwise not contaminated. . 10:15 ED course: Metabolic profile shows hypokalemia with potassium of 2.8 and some renal ec2 dysfunction noted with a creatinine of 1.44 and a GFR 47. Will give the patient potassium as well as a liter of crystalloid. I suspect this is causing the patient's paresthesias. . 10:20 ED course: On reassessment patient is well-appearing in no acute distress. Patient ec2 declined the IV crystalloid, would prefer discharged to home. Will discharge patient home with prescription for ciprofloxacin and Robaxin. Return precautions given. Presentation consistent with UTI and MSK pain.. 12 09:15 Order name: CBC with Diff; Complete Time: 09:57 ec2 03/21 09:15 Order name: BMP; Complete Time: 10:15 ec2 03/21 09:15 Order name: UAM; Complete Time: 10:03 ec2 03/21 09:18 Order name: Test, Urine; Complete Time: 10:02 ec2 03/21 10:05 Order name: Urine Culture EDMS Administered Medications: 10:12 Drug: Methocarbamol PO 500 mg PO once Route: PO; iw 10:12 Not Given (Physician Discretion): utxlitepb46 mg IM once iw 10:12 Drug: predniSONE PO 40 mg PO once Route: PO; iw 10:12 Drug: Ketorolac IVP 15 mg IVP once Route: IVP; Site: left antecubital; iw 10:12 Drug: Ciprofloxacin PO 500 mg PO once Route: PO; iw 10:20 CANCELLED (Physician Discretion): ns 0.9% 1000 ml IV at 1 bolus Per protocol; 1000 mL ec2 bolus 10:44 Drug: Potassium Chloride PO 40 mEq PO once Route: PO; iw Disposition Summary: 03/21/23 10:20 Discharge Ordered Notes: Location: Home ec2 Condition: Stable ec2 Diagnosis - UTI/ Urinary tract infection, site not specified ec2 - Pain in left leg ec2 - Hypokalemia ec2 Followup: ec2 - With: Private Physician - When: - Reason: Re-evaluation by your physician Discharge Instructions: - Discharge Summary Sheet ec2 - Musculoskeletal Pain ec2 - Urinary Tract Infection, Adult ec2 Forms: - Medication Reconciliation Form ec2 - Thank You Letter ec2 - Antibiotic Education ec2 - Prescription Opioid Use ec2 - Patient Portal Instructions ec2 - Leadership Thank You Letter ec2 Prescriptions: - Cipro 250 mg Oral tablet - take 1 tablet ORAL route every 12 hours for 7 days; 14 tablet; Refills: 0, ec2 Product Selection Permitted - methocarbamol 500 mg Oral tablet - take 2 tablets ORAL route 4 times per day; 30 tablet; Refills: 0, Product ec2 Selection Permitted Signatures: Dispatcher [employer] Janet Hurley RN RN iw Corral, Edwin, MD MD ec2 Corrections: (The following items were deleted from the chart) 09:18 09:15 Patient arrives today due to concern for left leg pain. States that has been ec2 intermittent for the past several weeks. Reports no leg swelling. Patient reports no fevers or chills. Denies any redness or skin changes. Reports that she also has some dysuria. Also complains of intermittent low back pain. States the pain is occasionally improved with heating pads, states that she has had no specific injury or trauma, denies any red flag symptoms of the spinal cord.. ec2 10:20 10:16 NS 0.9% IV 1000 ml IV at 1 bolus Per protocol; 1000 mL bolus ordered. ec2 ec2 10:22 10:20 ED course: On reassessment patient is well-appearing in no acute distress. Will ec2 discharge patient home with prescription for ciprofloxacin and Robaxin. Return precautions given. Presentation consistent with UTI and MSK pain.. ec2
[2023-03-21] MEDS ORDERED: CIPROFLOXACIN HCL 500 MG TAB ONE (10:23)
[2023-03-21 10:49] VITALS: BP 95/72; TEMP 98.2
[2023-03-21] MEDS ORDERED: POTASSIUM CL SA 10 MEQ TAB PO ONE (10:50)
== END 2023-03-21 10:44 | disposition home or self-care (01) ==
LOC: ER 08:36
DX: N39.0 Urinary tract infection, site not specified (principal); E87.6 Hypokalemia; M79.605 Pain in left leg
CPT/HCPCS: 87088; 85025; 81001; 87086; 80048; 36415; 81025; 87077; 87186; 96374; 99284; J7512

== ENCOUNTER 2023-03-31 06:48 | Inpatient (IN) | payer OTHER ==
--- OUTSIDE RECORDS SUMMARY | 2023-03-31 06:50 | XMS REPORT | Continuity of Care Document ---
Author Name Unknown Address [address] [place] [address] [facility] thconnect Address [address] [place] [address] Care Team Providers Care Blasting [employer]er Name Role Phone Pcp, Patient Does Not Have A Primary Care Physic thania GC_MARTAG_Mendoza_Hansa Attending Clinician Unavailable Rosie Levine Attending Clinician Sonya vailable AbnerEdini Rodrigo Attending Clinician + [phone] GC_SWOBGYN_Foreign_J Attending Clinician Unavail able Theodora Robles Attending Clinician + [phone] Geoff Canales Attending Clinician [phone] GEOFF WALTON Attending Clinician Unavailable Duane Ray MD Attending Clinician [phone] DUANE RAY Attending Clinician Unavailable Doctor Unassigned, [facility] Attending Clinician U navailable GC_LMG_[place]terrell_B Admitting Clinician Unavailable Abnre Rosie Wallace Admitting Clinician Sonya vailable GC_SWOBGYN_Foreign_J Admitting Clinician Unavail able Payers Payer Name Policy Type Policy Number Effective Date Expirati on Date Source [employer] - CHOICE (POS II) [id number] 2021 00:00:00 Problems Condition Name Condition Details Condition Category Status Onset Date Resolution Date Last Treatment Date Treating Clinician Comments Source Anxiety Anxiety Problem Active 10-12 00:00: [facility] Chest pain Chest pain Disease Active 08-05 00:00: 00 [facility] Allergies, Adverse Reactions, Alerts Allergy Name Allergy Type Status Severity Reaction(s) Onset Date Inactive Date Treating Clinician Comments Source NO KNOWN ALLERGIE S Drug Class Active [facility] Social History Social Habit Start Date Stop Date Quantity Comments Source History of tobacco use Cigarette Smoker [facility] Exposure to SARS-CoV-2 (event) Not sure [facility] Alcohol intake 2021-01-10 00:00:00 2021-01-10 00:00:00 0 /d [facility] Cigarettes smoked current (pack per day) - Reported 2020-11-12 00:00:00 2020-11-12 00:00:00 [facility] Cigarette pack-years 2020-11-12 00:00:00 2020-11-12 00:00:00 [facility] Tobacco use and exposure 2020-11-12 00:00:00 2020-11-12 00:00:00 Never used [facility] Sex Assigned At 1980 00:00:00 1980 00:00:00 [facility] Smoking Status Start Date Stop Date Source Light Tobacco Smoker [facility] Former smoker 2020-11-12 00:00:00 2020-11-12 00:00:00 [facility] Medications Ordered Medication Name Filled Medication Name Start Date Stop Date Current Medication? Ordering Clinician Indication Dosage Frequency Signature (SIG) Comments Components Source ALPRAZolam (XANAX) 0.5 mg tablet 01-10 09:44: 29 Yes .5mg Take 0.5 mg by mouth 3 (three) times daily. [facility] SUMATRIPTAN SUCCINATE (IMITREX ORAL) 01-10 09:44: 08 Yes Take by mouth as needed for Headache. [facility] ondansetron 4 mg tablet 01-10 00:00: 00 01-16 04:59 :00 No [id number] 4mg Take 1 tablet by mouth every 8 (eight) hours as needed for Nausea and Vomiting (N/V) for up to 5 days. [facility] metoclopram naty HCl 10 mg tablet 11-12 00:00: 00 Yes [id number] 1 tab every 4hr as needed for nausea [facility] acetaminoph en-codeine 300-30 mg tablet 11-12 00:00: 00 Yes [id number] 1/2 - 1 tab Every 4hrs as needed for pain or cough requiring narcotic Indication s: acute pain [facility] metoclopram naty HCl 10 mg tablet 11-12 00:00: 00 Yes [id number] 1 tab every 4hr as needed for nausea [facility] acetaminoph en-codeine 300-30 mg tablet 11-12 00:00: 00 Yes [id number] 1/2 - 1 tab Every 4hrs as needed for pain or cough requiring narcotic Indication s: acute pain [facility] metoclopram naty HCl 10 mg tablet 11-12 00:00: 00 Yes [id number] 1 tab every 4hr as needed for nausea [facility] acetaminoph en-codeine 300-30 mg tablet 11-12 00:00: 00 Yes [id number] 1/2 - 1 tab Every 4hrs as needed for pain or cough requiring narcotic Indication s: acute pain [facility] cephALEXin 500 mg tablet 11-12 00:00: 00 11-18 04:59 :00 No [id number] 500mg Take 1 tablet by mouth 2 (two) times daily for 5 days. May use capsules [facility] cephALEXin 500 mg tablet 11-12 00:00: 00 11-18 04:59 :00 No [id number] 500mg Take 1 tablet by mouth 2 (two) times daily for 5 days. May use capsules [facility] SUMATRIPTAN SUCCINATE (IMITREX ORAL) 08-11 20:46: 13 Yes Take by mouth as needed for Headache. [facility] SUMATRIPTAN SUCCINATE (IMITREX ORAL) 08-11 20:46: 13 Yes Take by mouth as needed for Headache. [facility] SUMATRIPTAN SUCCINATE (IMITREX ORAL) 08-11 20:46: 13 Yes Take by mouth as needed for Headache. [facility] ARIPiprazol e (ABILIFY) 5 mg tablet 08-11 00:00: 00 Yes 2.5mg Take 0.5 tablets by mouth at bedtime. [facility] escitalopra m oxalate (LEXAPRO) 10 mg tablet 08-11 00:00: 00 Yes 10mg Take 1 tablet by mouth daily. [facility] zolpidem (AMBIEN) 10 mg tablet 08-11 00:00: 00 Yes 10mg Take 1 tablet by mouth at bedtime as needed for Insomnia. [facility] clonazePAM (KLONOPIN) 0.5 mg tablet 08-11 00:00: 00 Yes .25mg Take 0.5 tablets by mouth 2 (two) times daily as needed (anxiety). [facility] ARIPiprazol e (ABILIFY) 5 mg tablet 08-11 00:00: 00 Yes 2.5mg Take 0.5 tablets by mouth at bedtime. [facility] escitalopra m oxalate (LEXAPRO) 10 mg tablet 08-11 00:00: 00 Yes 10mg Take 1 tablet by mouth daily. [facility] zolpidem (AMBIEN) 10 mg tablet 08-11 00:00: 00 Yes 10mg Take 1 tablet by mouth at bedtime as needed for Insomnia. [facility] clonazePAM (KLONOPIN) 0.5 mg tablet 08-11 00:00: 00 Yes .25mg Take 0.5 tablets by mouth 2 (two) times daily as needed (anxiety). [facility] ARIPiprazol e (ABILIFY) 5 mg tablet 08-11 00:00: 00 Yes 2.5mg Take 0.5 tablets by mouth at bedtime. [facility] escitalopra m oxalate (LEXAPRO) 10 mg tablet 08-11 00:00: 00 Yes 10mg Take 1 tablet by mouth daily. [facility] zolpidem (AMBIEN) 10 mg tablet 08-11 00:00: 00 Yes 10mg Take 1 tablet by mouth at bedtime as needed for Insomnia. [facility] clonazePAM (KLONOPIN) 0.5 mg tablet 08-11 00:00: 00 Yes .25mg Take 0.5 tablets by mouth 2 (two) times daily as needed (anxiety). [facility] ARIPiprazol e (ABILIFY) 5 mg tablet 08-11 00:00: 00 Yes 2.5mg Take 0.5 tablets by mouth at bedtime. [facility] escitalopra m oxalate (LEXAPRO) 10 mg tablet 08-11 00:00: 00 Yes 10mg Take 1 tablet by mouth daily. [facility] zolpidem (AMBIEN) 10 mg tablet 08-11 00:00: 00 Yes 10mg Take 1 tablet by mouth at bedtime as needed for Insomnia. [facility] clonazePAM (KLONOPIN) 0.5 mg tablet 08-11 00:00: 00 Yes .25mg Take 0.5 tablets by mouth 2 (two) times daily as needed (anxiety). [facility] acetaminoph en 300 mg-codeine 30 mg tablet TAKE 1 TABLET BY MOUTH EVERY 6 HOURS acetaminoph en 300 mg-codeine 30 mg tablet TAKE 1 TABLET BY MOUTH EVERY 6 HOURS No acetaminop hen 300 mg-codeine 30 mg tablet TAKE 1 TABLET BY MOUTH EVERY 6 HOURS [facility] alprazolam 1 mg tablet TAKE 1 TABLET BY MOUTH TWICE A DAY alprazolam 1 mg tablet TAKE 1 TABLET BY MOUTH TWICE A DAY No alprazolam 1 mg tablet TAKE 1 TABLET BY MOUTH TWICE A DAY [facility] atorvastati n 20 mg tablet TAKE 1 TABLET BY MOUTH EVERY DAY atorvastati n 20 mg tablet TAKE 1 TABLET BY MOUTH EVERY DAY No atorvastat in 20 mg tablet TAKE 1 TABLET BY MOUTH EVERY DAY [facility] omeprazole 40 mg capsule,del ayed release TAKE 1 CAPSULE BY MOUTH EVERY DAY omeprazole 40 mg capsule,del ayed release TAKE 1 CAPSULE BY MOUTH EVERY DAY No omeprazole 40 mg capsule,de layed release TAKE 1 CAPSULE BY MOUTH EVERY DAY [facility] phentermine 37.5 mg tablet TAKE 1 TABLET BY MOUTH EVERY DAY IN THE MORNING phentermine 37.5 mg tablet TAKE 1 TABLET BY MOUTH EVERY DAY IN THE MORNING No phentermin e 37.5 mg tablet TAKE 1 TABLET BY MOUTH EVERY DAY IN THE MORNING [facility] sumatriptan 100 mg tablet TAKE 1 TABLET BY MOUTH EVERY DAY NEEDED sumatriptan 100 mg tablet TAKE 1 TABLET BY MOUTH EVERY DAY NEEDED No sumatripta n 100 mg tablet TAKE 1 TABLET BY MOUTH EVERY DAY NEEDED [facility] sumatriptan 20 mg/actuatio n nasal spray 1 NASAL SPRAY EVERY DAY NEEDED sumatriptan 20 mg/actuatio n nasal spray 1 NASAL SPRAY EVERY DAY NEEDED No sumatripta n 20 mg/actuati on nasal spray 1 NASAL SPRAY EVERY DAY NEEDED [facility] torsemide 20 mg tablet TAKE 1 TABLET BY MOUTH EVERY DAY torsemide 20 mg tablet TAKE 1 TABLET BY MOUTH EVERY DAY No torsemide 20 mg tablet TAKE 1 TABLET BY MOUTH EVERY DAY [facility] zolpidem 10 mg tablet TAKE 1 TABLET BY MOUTH AT BEDTIME NEEDED zolpidem 10 mg tablet TAKE 1 TABLET BY MOUTH AT BEDTIME NEEDED No zolpidem 10 mg tablet TAKE 1 TABLET BY MOUTH AT BEDTIME [facility] Vital Signs Vital Name Observation [...] Systolic blood pressure 2021-01-10 14:42:00 127 mm[Hg] [facility] Diastolic blood pressure 2021-01-10 14:42:00 79 mm[Hg] [facility] Heart rate 2021-01-10 14:42:00 112 /min [facility] Body temperature 2021-01-10 14:42:00 36.17 [employer] [facility] Respiratory rate 2021-01-10 14:42:00 18 /min [facility] Body height 2021-01-10 14:42:00 165.1 cm [facility] Body weight 2021-01-10 14:42:00 79.379 kg [facility] BMI 2021-01-10 14:42:00 29.12 kg/m2 [facility] Oxygen saturation in Arterial blood by Pulse oximetry 2021-01-10 14:42:00 99 /min [facility] Systolic blood pressure 2020-11-12 22:38:00 115 mm[Hg] [facility] Diastolic blood pressure 2020-11-12 22:38:00 81 mm[Hg] [facility] Heart rate 2020-11-12 22:38:00 134 /min [facility] Body temperature 2020-11-12 22:38:00 36.83 [employer] [facility] Body height 2020-11-12 22:38:00 167.6 cm [facility] Body weight 2020-11-12 22:38:00 83.915 kg [facility] BMI 2020-11-12 22:38:00 29.86 kg/m2 [facility] Oxygen saturation in Arterial blood by Pulse oximetry 2020-11-12 22:38:00 99 /min [facility] Procedures Procedure Date / Time Performed Performing Clinician Source MAMMO, screening, digital, bilateral 2021-10-12 00:00:00 [facility] URINALYSIS MICROSCOPIC 2020-11-13 00:17:00 Bart Ray [facility] POCT URINALYSIS 2020-11-13 00:13:00 [facility] 2020-11-12 22:21:26 Docto r Unassigned, [facility] Breast Surgery - Augmentation [facility] Plan of Care Planned Activity Planned Date Details Comments Source Diagnostic Test Pending 2021-10-12 00:00:00 pap, LB + HR HPV + reflex HPV (16+18) [code = pap, LB + HR HPV + reflex HPV (16+18)] [facility] Instructions [facility] Encounters Start Date/Time End Date/Time Encounter Type Admission Type Attending Clinicians Care Facility Care Department Encounter ID Source 2021-11-08 00:00:00 2021-11-08 00:00:00 Outpatient GC_LMG_Comp ton_B PRIV PRIV [id number] [facility] 2021-10-13 08:00:00 2021-10-13 08:00:00 Outpatient Rosie Wells [facility] [id number] 28 [facility] 2021-10-12 12:06:00 2021-10-12 12:06:00 Outpatient GC_LMG_Comp ton_B PRIV PRIV [id number] [facility] 2021-10-12 00:00:00 2021-10-12 00:00:00 Outpatient Rosie Araujo PRIV [id number] 2021-10-12 00:00:00 2021-10-12 00:00:00 Rosie rodriguez MD: [id number] [place] [address] , Ph. [facility] - GC_LMG_[facility]* [id number] [facility] 2021-10-11 10:16:00 2021-10-11 10:16:00 Outpatient GC_SWOBGYN_ Arvindharmony_J [facility] [id number] [facility] 2021-09-18 05:39:00 2021-09-18 05:39:00 Outpatient GC_LMG_Comp ton_B [facility] [id number] [facility] 2021-09-18 05:39:00 2021-09-18 05:39:00 Outpatient GC_LMG_Comp ton_B [facility] [id number] [facility] 2021-01-10 09:39:36 2021-01-10 10:12:23 Urgent Care Theodora Flores [facility] [id number] [facility] 2021-01-10 09:40:00 2021-01-10 09:40:00 Outpatient GEOFF PARRA [facility] [id number] [facility] 2020-11-12 17:22:14 2020-11-12 19:46:41 [facility] [id number] [facility] 2020-11-12 17:20:00 2020-11-12 17:20:00 Outpatient DUANE HARPER [facility] [id number] [facility] 2020-11-12 00:00:00 2020-11-12 00:00:00 Orders Only Doctor Unassigned, [facility] [id number] [facility] Results Test Description Test Time Test Comments Results Result Co mments Source [facility] [id number] 00:15:00* Test Item Value Reference Range Interpretation [...] internal controls Lab Interpretation (test code = 47569-9) Abnormal [facility] URINALYSIS W SPECIFIC [id number] 00:15:00* Test Item Value Reference Range Interpretation [...] internal controls Lab Interpretation (test code = 85221-5) Abnormal [facility]
[2023-03-31] MEDS ORDERED: ONDANSETRON 4 MG/2 ML VIAL ONE (07:33)
[2023-03-31] MEDS ORDERED: MORPHINE 4 MG/ML SYR ONE ×2 (07:33→08:44)
[2023-03-31] MEDS ORDERED: FAMOTIDINE 20 MG/2 ML VIAL IV ONE (07:34)
[2023-03-31] MEDS ORDERED: NA CHLORIDE 0.9% 1,000 ML ONE ×3 (07:34→10:39)
[2023-03-31 07:55] LABS: Absolute Lymphocytes (CBC) 1.3 K/uL (0.7-4.9); Hematocrit 36.1 % (36.0-45.0); Lymphocytes % 5.2 % (15.3-44.8); MCV 86.4 fL (80-100); Platelets 224 thou/uL (152-406); RBC Red Blood Cell Count 4.19 M/uL (3.86-4.86)
[2023-03-31 08:06] LABS: Specific Gravity 1.031 (1.005-1.030)
[2023-03-31 08:07] LABS: Specific Gravity > 1.030 (1.005-1.030); Transitional Epithelial <5 /HPF (None Seen); Urine Bacteria >50 /HPF (<20); Urine Bilirubin NEGATIVE (Negative); Urine Blood 1+ (Negative); Urine Clarity Extremely Turbid (Clear); Urine Color Orange (Yellow); Urine Glucose NEGATIVE (Negative); Urine Protein 1+ (Negative); Urine Urobilinogen 1+ (Normal); Urine pH 5.5 (5.0-7.0)
[2023-03-31 08:22] LABS: AST/SGOT 13 U/L (15-37); Albumin 2.6 g/dL (3.4-5.0); Alkaline Phosphatase 59 U/L (45-117); BUN Blood Urea Nitrogen 26 mg/dL (7-18); Bicarbonate 26 mEq/L (21-32); Bilirubin Total 0.5 mg/dL (0.2-1.0); Glomerular Filtration Rate 55 ml/min (=/>90); Glucose Level 125 mg/dL (74-106); Lipase 41 U/L (13-75); Potassium 3.3 mEq/L (3.5-5.1); Protein, Total 5.9 g/dL (6.4-8.2); Sodium Level 139 mEq/L (136-145)
[2023-03-31 08:25] LABS: ALT/SGPT < 10 U/L (13-56)
--- NOTE | 2023-03-31 08:42 | RAD REPORT ---
EXAM DESCRIPTION: US - Abdomen Exam Limited - 03/31/2023 8:01 am CLINICAL HISTORY: ABD PAIN COMPARISON: CT-STONE PROTOCOL dated 04/14/2012 TECHNIQUE: Sonographic grayscale and color flow images of the right upper abdominal quadrant were o btained. FINDINGS: The gallbladder demonstrates no gallstones. No pericholecystic fluid or gallbladder wall t hickening. The common bile duct is normal measuring 4 mm. The liver demonstrates no findings of intrahepatic biliary dilatation. IMPRESSION: Unremarkable examination.
[2023-03-31 08:43] LABS: Platelet Estimate ADEQ
[2023-03-31 08:44] LABS: Anisocytosis 1+; Blood Morphology Comment NOTED (NOT SEEN); Dohle Bodies PRESENT
[2023-03-31] MEDS ORDERED: NA CHLORIDE 0.9% 100 ML ONE (08:44)
[2023-03-31] MEDS ORDERED: CEFTRIAXONE 2000 MG/VIAL ONE (08:44)
[2023-03-31] MEDS ORDERED: METRONIDAZOLE 500mg IVPB 500 MG/100 ML BAG IV ONE (08:45)
[2023-03-31] MEDS ORDERED: CIPROFLOXACIN 400mg IV 400 MG/200 ML BAG IV ONE (08:45)
--- NOTE | 2023-03-31 09:21 | RAD REPORT ---
EXAM DESCRIPTION: CT - Abdomen Pelvis W Contrast - 03/31/2023 8:42 am CLINICAL HISTORY: ABD PAIN COMPARISON: No comparisons TECHNIQUE: Thin cut axial CT imaging of the abdomen and pelvis was performed following intravenous a dministration of 100 mL Isovue 300. Multiplanar reformats were generated and reviewed. All CT scans are performed using dose optimization technique as appropriate and may include automated exposure control or mA/KV adjustment according to patient size. FINDINGS: No suspicious findings in the lung bases. The liver, spleen, adrenal glands, and pancreas show no suspicious findings. Gallbladder and biliary tree are also without suspicious finding. Bilateral renal collecting system duplication. Otherwise symmetric renal function is seen with no hyd ronephrosis or suspicious renal mass. Sequelae of gastric bypass. No dilated bowel loops. Long segment wall thickening and adjacent mild fa t stranding extending from the splenic flexure to the proximal to mid sigmoid colon. No abnormal flui d collections. Appendix is unremarkable. Trace free pelvic ascites. No free air, or other inflammator y stranding. No hernia, mass or bulky lymphadenopathy. The urinary bladder is decompressed which limi ts evaluation. No suspicious bony findings. IMPRESSION: Long segment wall thickening and adjacent mild fat stranding along the distal colon as a tanner, suggestive of infectious or inflammatory colitis. Mild free pelvic ascites.
--- NOTE | 2023-03-31 09:52 | EDPHYS ---
Physician Documentation [facility] Name: Nelsy Hernández Age: 42 yrs Sex: Female : 1980 Arrival Date: 03/31/2023 Time: 06:48 Bed 8 Private MD: ED Physician Tomer Rincon HPI: 03/31 07:46 This 42 yrs old Female presents to ER via Ambulatory with complaints of altagracia Abdominal Pain. 07:46 The patient presents with abdominal pain in the left upper quadrant, in the left lower altagracia quadrant, abdominal distention in the epigastric area. 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 - Social history:: Smoking status: Patient denies any tobacco usage or history of. ROS: 07:50 Constitutional: Negative for fever, chills, and weight loss, Eyes: Negative for injury, altagracia pain, redness, and discharge, ENT: Negative for injury, pain, and discharge, Neck: Negative for injury, pain, and swelling, Cardiovascular: Negative for chest pain, palpitations, and edema, Respiratory: Negative for shortness of breath, cough, wheezing, and pleuritic chest pain, Back: Negative for injury and pain, : Negative for injury, bleeding, discharge, and swelling, MS/Extremity: Negative for injury and deformity, Skin: Negative for injury, rash, and discoloration, Neuro: Negative for headache, weakness, numbness, tingling, and seizure, Psych: Negative for depression, anxiety, suicide ideation, homicidal ideation, and hallucinations, Allergy/Immunology: Negative for hives, rash, and allergies, Endocrine: Negative for neck swelling, polydipsia, polyuria, polyphagia, and marked weight changes, 07:50 Abdomen/GI: Positive for abdominal pain, nausea, of the left upper quadrant and left lower quadrant, Exam: 07:50 Constitutional: This is a well developed, well nourished patient who is awake, alert, altagracia and in no acute distress. Head/Face: Normocephalic, atraumatic. Eyes: Pupils equal round and reactive to light, extra-ocular motions intact. Lids and lashes normal. Conjunctiva and sclera are non-icteric and not injected. Cornea within normal limits. Periorbital areas with no swelling, redness, or edema. ENT: Nares patent. No nasal discharge, no septal abnormalities noted. Tympanic membranes are normal and external auditory canals are clear. Oropharynx with no redness, swelling, or masses, exudates, or evidence of obstruction, uvula midline. Mucous membranes moist. Neck: Trachea midline, no thyromegaly or masses palpated, and no cervical lymphadenopathy. Supple, full range of motion without nuchal rigidity, or vertebral point tenderness. No Meningismus. Chest/axilla: Normal chest wall appearance and motion. Nontender with no deformity. No lesions are appreciated. Cardiovascular: Regular rate and rhythm with a normal S1 and S2. No gallops, murmurs, or rubs. Normal PMI, no JVD. No pulse deficits. Respiratory: Lungs have equal breath sounds bilaterally, clear to auscultation and percussion. No rales, rhonchi or wheezes noted. No increased work of breathing, no retractions or nasal flaring. Back: No spinal tenderness. No costovertebral tenderness. Full range of motion. Skin: Warm, dry with normal turgor. Normal color with no rashes, no lesions, and no evidence of cellulitis. MS/ Extremity: Pulses equal, no cyanosis. Neurovascular intact. Full, normal range of motion. Neuro: Awake and alert, GCS 15, oriented to person, place, time, and situation. Cranial nerves II-XII grossly intact. Motor strength 5/5 in all extremities. Sensory grossly intact. Cerebellar exam normal. Normal gait. Psych: Awake, alert, with orientation to person, place and time. Behavior, mood, and affect are within normal limits. 07:50 Abdomen/GI: Inspection: distension, that is mild, Bowel sounds: active, Palpation: moderate abdominal tenderness, Liver: no appreciated palpable abnormalities, Hernia: not appreciated, Vital Signs: 07:16 BP 108 / 57; Pulse 100; Resp 16; Temp 98.1; Pulse Ox 100% on R/A; Weight 70.31 kg; iw Height 5 ft. 5 in. ; Pain 9/10; 08:30 BP 91 / 60; Pulse 74; Resp 18; Pulse Ox 98% on R/A; ph 09:30 BP 82 / 57; Pulse 78; Resp 16; Pulse Ox 98% on R/A; ph 10:30 BP 83 / 52; Pulse 76; Resp 18; Pulse Ox 99% on R/A; ph 11:31 BP 93 / 56; Pulse 84; Resp 18; Temp 98.7; Pulse Ox 99% ; ph 07:16 Body Mass Index 25.79 (70.31 kg, 165.1 cm) 07:16 Pain Scale: Adult MDM: 07:07 Patient medically screened. [facility] 07:52 Differential diagnosis: bowel obstruction, Cholelithiasis, diverticulitis, altagracia gastroesophageal reflux disease, non-specific abd pain. Data reviewed: vital signs, nurses notes, lab test result(s), radiologic studies, plain films, ultrasound. Consideration of Admission/Observation Escalation of care including admission/observation considered. I considered the following discharge prescriptions or medication management in the emergency department Medications were administered in the Emergency Department. See MAR. Independent interpretation of the following test(s) in the Emergency Department CT Scan: My interpretation is ct abd pelvis. Historians other than the Patient: Spouse/Significant Other: well informed. 03/31 07:13 Order name: CBC with Diff; Complete Time: 09:28 [facility] 03/31 07:13 Order name: CMP; Complete Time: 08:35 [facility] 03/31 07:13 Order name: Lipase; Complete Time: 08:35 [facility] 03/31 07:13 Order name: Test, Urine; Complete Time: 08:12 [facility] 03/31 07:13 Order name: Urinalysis w/ reflexes; Complete Time: 08:12 [facility] 03/31 08:44 Order name: Manual Differential; Complete Time: 09:42 EDMS 03/31 09:42 Order name: Fecal Leukocyte Stain [facility] 03/31 09:42 Order name: Stool Culture [facility] 03/31 11:44 Order name: C.difficile 03/31 07:13 Order name: CT Abd/Pelvis - IV Contrast Only; Complete Time: 09:42 [facility] 03/31 07:24 Order name: US Abdomen Limited; Complete Time: 09:06 [facility] 03/31 07:13 Order name: IV Saline Lock; Complete Time: 07:54 [facility] 03/31 07:13 Order name: Labs collected and sent; Complete Time: 07:54 altagracia Administered Medications: 07:54 Drug: NS 0.9% IV 1000 ml IV at 1 bolus Per protocol; 1000 mL bolus Route: IV; Rate: 1 ph bolus; Site: left antecubital; 07:54 Drug: Ondansetron IVP 4 mg IVP once; over 2 minutes Route: IVP; Site: left antecubital; ph 07:55 Drug: Famotidine IVP 20 mg IVP once; dilute with 10 mL 0.9% NaCl; give over 2 minutes ph Route: IVP; Site: left antecubital; 07:55 Drug: morphine IVP or IV 4 mg IVP once over 4 mins Route: IVP; Infused Over: 4 mins; ph Site: left antecubital; 09:09 Drug: NS 0.9% IV 1000 ml IV at 1 bolus Per protocol; 1000 mL bolus Route: IV; Rate: 1 ph bolus; Site: left antecubital; 09:09 Drug: morphine IVP or IV 2 mg IVP once over 4 mins Route: IVP; Infused Over: 4 mins; ph Site: left antecubital; 09:09 Drug: morphine IVP or IV 2 mg IVP once over 4 mins Route: IVP; Infused Over: 4 mins; ph Site: left antecubital; 09:10 Drug: Rocephin IV 2 grams IV at per protocol once; Given slow IV push per [email or web address] ph instructions Route: IV; Rate: per protocol; Site: left antecubital; 10:53 Drug: NS 0.9% IV 1000 ml IV at 1 bolus Per protocol; 1000 mL bolus Route: IV; Rate: 1 hb bolus; Site: left antecubital; 10:53 Drug: fentaNYL (PF) IVP 25 mcg IVP once Route: IVP; Site: left antecubital; hb 10:54 Drug: metroNIDAZOLE IVPB 500 mg 100 ml IVPB at 200 ml/hr once over 30 mins Volume: 100 hb ml; Route: IVPB; Rate: 200 ml/hr; Infused Over: 30 mins; Site: left antecubital; Disposition Summary: 03/31/23 09:51 Hospitalization Ordered Notes: Hospitalization Status: Inpatient Admission altagracia Provider: Junaid Joyce cha [facility] altagracia Condition: Stable altagracia Problem: new altagracia Symptoms: have improved altagracia Bed/Room Type: Standard altagracia Room Assignment: 214(03/31/23 10:19) eb Diagnosis - Abdominal tenderness altagracia - Elevated white blood cell count altagracia - Hypokalemia altagracia - Left sided colitis without complications altagracia - Bandemia altagracia Forms: - Medication Reconciliation Form altagracia - SBAR form altagracia - Leadership Thank You Letter altagracia Signatures: Dispatcher [employer] EDTomer Frost MD MD cha Williams, Irene, RN RN Oscar Srivastava FNP-C INCLUSION SPECIAL EDUCATOR-Cla1 Lakeisha Sanches RN RN Mar Carl RN RN Daphne Roberson Corrections: (The following items were deleted from the chart) 10:19 09:51 altagracia eb
--- NOTE | 2023-03-31 09:52 | ER ---
Nurse's Notes [facility] Name: Nelsy Hernández Age: 42 yrs Sex: Female : 1980 Arrival Date: 03/31/2023 Time: 06:48 Bed 8 Private MD: Diagnosis: Abdominal tenderness;Elevated white blood cell count;Hypokalemia;Left sided colitis without complications;Bandemia Presentation: 03/31 07:16 Chief complaint: Patient states: abd pain since Saturday , also had diarrhea, there was iw blood in her stool, she was seen at [place] on Saturday for UTI and left leg/back pain, her UTI symptoms have resolved. Coronavirus screen: At this time, the client does not indicate any symptoms associated with coronavirus-19. Ebola Screen: Patient negative for fever greater than or equal to 101.5 degrees Fahrenheit, and additional compatible Ebola Virus Disease symptoms Patient denies exposure to infectious person. Patient denies travel to an Ebola-affected area in the 21 days before illness onset. No symptoms or risks identified at this time. Initial Sepsis Screen: Does the patient meet any 2 criteria? No. Patient's initial sepsis screen is negative. Does the patient have a suspected source of infection? No. Patient's initial sepsis screen is negative. Risk Assessment: Do you want to hurt yourself or someone else? Patient reports no desire to harm self or others. Onset of symptoms was March 27, 2023. 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 - Social history:: Smoking status: Patient denies any tobacco usage or history of. Screenin:56 [facility] ED Fall Risk Assessment (Adult) History of falling in the last 3 months, ph including since admission No falls in past 3 months (0 pts) Score/Fall Risk Level 0 - 2 = Low Risk Oriented to surroundings, Maintained a safe environment, Provided non-skid footwear, Hourly rounding (assess needs \T\ fall precautionary measures) done. Abuse screen: Denies threats or abuse. Denies injuries from another. Nutritional screening: No deficits noted. Tuberculosis screening: No symptoms or risk factors identified. Assessment: 07:55 General: Appears in no apparent distress. uncomfortable, slender, well groomed, ph Behavior is calm, cooperative, appropriate for age, Reports chills for fever for. Pain: Complains of pain in abdomen. Pain: Complains of pain in left leg. Neuro: Level of Consciousness is awake, alert, obeys commands, Oriented to person, place, time, situation. Cardiovascular: Capillary refill < 3 seconds in bilateral fingers Patient's skin is warm and dry. Respiratory: Airway is patent Respiratory effort is even, unlabored. GI: Abdomen is non-distended, Reports lower abdominal pain, upper abdominal pain, diarrhea, bloody stool, nausea. Derm: Skin is pink, warm \T\ dry. 12:18 Reassessment: Patient appears in no apparent distress at this time. Patient and/or ph family updated on plan of care and expected duration. Pain level reassessed. Patient is alert, oriented x 3, equal unlabored respirations, skin warm/dry/pink. Report called to Favian CHIRINOS. Vital Signs: 07:16 BP 108 / 57; Pulse 100; Resp 16; Temp 98.1; Pulse Ox 100% on R/A; Weight 70.31 kg; iw Height 5 ft. 5 in. ; Pain 9/10; 08:30 BP 91 / 60; Pulse 74; Resp 18; Pulse Ox 98% on R/A; ph 09:30 BP 82 / 57; Pulse 78; Resp 16; Pulse Ox 98% on R/A; ph 10:30 BP 83 / 52; Pulse 76; Resp 18; Pulse Ox 99% on R/A; ph 11:31 BP 93 / 56; Pulse 84; Resp 18; Temp 98.7; Pulse Ox 99% ; ph 07:16 Body Mass Index 25.79 (70.31 kg, 165.1 cm) iw 07:16 Pain Scale: Adult iw ED Course: 06:58 Patient arrived in ED. ag3 07:06 Tomer Rincon MD is Attending Physician. altagracia 07:19 Triage completed. iw 07:19 Arm band placed on. iw 07:54 Lakeisha Sanches, TARAN is Primary Nurse. ph 07:54 CBC with Diff Sent. ph 07:54 CMP Sent. ph 07:54 Lipase Sent. ph 07:54 Urinalysis w/ reflexes Sent. ph 07:57 Patient has correct armband on for positive identification. Bed in low position. Call ph light in reach. Side rails up X 1. Client placed on continuous cardiac and pulse oximetry monitoring. NIBP monitoring applied. 08:03 US Abdomen Limited In Process Unspecified. EDMS 08:43 CT Abd/Pelvis - IV Contrast Only In Process Unspecified. EDMS 09:50 Junaid Joyce MD is Hospitalizing Provider. [facility] 12:18 No provider procedures requiring assistance completed. Patient admitted, IV remains in ph place. Administered Medications: 07:54 Drug: NS 0.9% IV 1000 ml IV at 1 bolus Per protocol; 1000 mL bolus Route: IV; Rate: 1 ph bolus; Site: left antecubital; 07:54 Drug: Ondansetron IVP 4 mg IVP once; over 2 minutes Route: IVP; Site: left antecubital; ph 07:55 Drug: Famotidine IVP 20 mg IVP once; dilute with 10 mL 0.9% NaCl; give over 2 minutes ph Route: IVP; Site: left antecubital; 07:55 Drug: morphine IVP or IV 4 mg IVP once over 4 mins Route: IVP; Infused Over: 4 mins; ph Site: left antecubital; 09:09 Drug: NS 0.9% IV 1000 ml IV at 1 bolus Per protocol; 1000 mL bolus Route: IV; Rate: 1 ph bolus; Site: left antecubital; 09:09 Drug: morphine IVP or IV 2 mg IVP once over 4 mins Route: IVP; Infused Over: 4 mins; ph Site: left antecubital; 09:09 Drug: morphine IVP or IV 2 mg IVP once over 4 mins Route: IVP; Infused Over: 4 mins; ph Site: left antecubital; 09:10 Drug: Rocephin IV 2 grams IV at per protocol once; Given slow IV push per pharmarcy ph instructions Route: IV; Rate: per protocol; Site: left antecubital; 10:53 Drug: NS 0.9% IV 1000 ml IV at 1 bolus Per protocol; 1000 mL bolus Route: IV; Rate: 1 hb bolus; Site: left antecubital; 10:53 Drug: fentaNYL (PF) IVP 25 mcg IVP once Route: IVP; Site: left antecubital; hb 10:54 Drug: metroNIDAZOLE IVPB 500 mg 100 ml IVPB at 200 ml/hr once over 30 mins Volume: 100 hb ml; Route: IVPB; Rate: 200 ml/hr; Infused Over: 30 mins; Site: left antecubital; Medication: 07:56 VIS not applicable for this client. ph Outcome: 09:51 Decision to Hospitalize by Provider. altagracia 12:19 Admitted to Med/surg accompanied by tech, via stretcher, room 214, with chart, Report ph called to Favian CHIRINOS 12:19 Condition: stable 12:19 Instructed on the need for admit, 12:33 Patient left the ED. hb Signatures: Dispatcher [employer] EDTomer Frost MD MD cha Williams, Irene, RN RN Lakeisha Sanches RN RN Mar Carl RN RN Mary Beth Carrillo ag3
[2023-03-31] MEDS ORDERED: FENTANYL CITR 100 MCG/2 ML ONE (10:39)
[2023-03-31 12:58] VITALS: BMI 25.7
[2023-03-31] MEDS ORDERED: FENTANYL CITR 100 MCG/2 ML IV PRN (14:13)
[2023-03-31] MEDS ORDERED: ACETAMINOPHEN 325 MG TABLET PO PRN (14:24)
[2023-03-31] MEDS: METRONIDAZOLE 500mg IVPB 500 MG/100 ML BAG IV SCH ×2 (14:43→18:00)
[2023-03-31] MEDS: ONDANSETRON 4 MG/2 ML VIAL IV PRN (14:43)
[2023-03-31] MEDS: NS KCL 20MEQ 20 MEQ/1,000 ML BAG IV SCH ×2 (15:03→22:38)
[2023-03-31] MEDS: MORPHINE 4 MG/ML SYR IV PRN ×2 (17:43→22:39)
--- NOTE | 2023-03-31 18:17 | HP ---
Date of Admission: 03/31/2023 Entrance Complaint: Abdominal pain. History Of Present Illness: Patient stated the pain started couple of days prior to presenting to [facility] emergency room, became increasingly more severe, started in left lower abdomen, associated with shmuel sea and vomiting. Patient stated that he did not have fever, but chills. Due to excessive pain, he was brought into the ER where diagnosis of acute diverticulitis was made via a CAT scan. Other signi ficant history is patient stated off and on, she has had some low back pain, which since subsided, ho wever, she has had significant radiation in the left thigh area towards the knee, which has been vari able. Seen in the emergency room couple of days prior to admission, was given steroids IM, undoubted ly contributing to her present white count 25,000. She was also seen in our ER about 2 weeks ago and had IV steroids. She stated her back pain, she does not correlate at all with the lower abdominal p ain and in fact since has been given analgesics, has improved considerably. She has no prior history of abdominal problems. No family history of diverticulitis. Has a distant family history of colon cancer. Past History: Patient has had some weight issues. She has various diuretics for this. She is stewa rdess and uses Xanax dose on a p.r.n. basis. She also had weight reduction surgery approximately 7 y ears ago. Family History: Noncontributory. Social History: Nonsmoker. Occasional alcohol intake. Physical Examination: General: Patient is a rather uncomfortable middle-aged female. Vital Signs: Stable. Head and Neck: Normocephalic. Pupils are equal, reactive to light and accommodation. Chest: Clear to P and A. Cardiovascular: PMI in midclavicular line. Heart: Sounds normal. Peripheral pulses present and equal bilaterally. Abdomen: Tenderness in the left lower quadrant. Marked tenderness in this area with moderate reboun d tenderness. Some minimal tenderness in the right mid central area as well. Bowel sounds hyperacti ve. Extremities: Moderately dehydrated. Good tone bilaterally. Reflexes physiologic. Rectal/Pelvic: Deferred. Impression: Acute diverticulitis, dehydration, neuritis, possible secondary to back issues. Plan: Patient will be admitted, placed on IV fluids. IV antibiotics with Cipro and Flagyl. Pain co ntrol. Nausea control and we will keep her n.p.o. except for water, ice cubes, meds to begin with an d progression as indicated. HR/MODL Voice ID: [id number]
[2023-03-31] MEDS: CIPROFLOXACIN 400mg IV 400 MG/200 ML BAG IV SCH (20:54)
[2023-04-01] MEDS: MORPHINE 4 MG/ML SYR IV PRN ×4 (03:04→20:22)
[2023-04-01 03:49] LABS: Absolute Lymphocytes (CBC) 2.3 K/uL (0.7-4.9); Hematocrit 30.2 % (36.0-45.0); Lymphocytes % 15.6 % (15.3-44.8); MPV 8.4 fL (7.6-11.3); Platelets 197 thou/uL (152-406); RBC Red Blood Cell Count 3.47 M/uL (3.86-4.86)
[2023-04-01 04:04] LABS: AST/SGOT 12 U/L (15-37); Albumin 2.2 g/dL (3.4-5.0); Alkaline Phosphatase 62 U/L (45-117); BUN Blood Urea Nitrogen 14 mg/dL (7-18); Bicarbonate 23 mEq/L (21-32); Bilirubin Total 0.3 mg/dL (0.2-1.0); Glomerular Filtration Rate 99 ml/min (=/>90); Glucose Level 108 mg/dL (74-106); Lipase 34 U/L (13-75); Potassium 3.4 mEq/L (3.5-5.1); Protein, Total 5.1 g/dL (6.4-8.2); Sodium Level 140 mEq/L (136-145)
[2023-04-01 04:10] LABS: ALT/SGPT < 10 U/L (13-56); Bilirubin Direct < 0.1 mg/dL (0-0.2); Bilirubin Indirect, Calculated ND mg/dL (0.2-0.8)
[2023-04-01] MEDS: METRONIDAZOLE 500mg IVPB 500 MG/100 ML BAG IV SCH ×4 (05:44→17:23)
[2023-04-01] MEDS: NS KCL 20MEQ 20 MEQ/1,000 ML BAG IV SCH ×2 (06:13→14:50)
[2023-04-01] MEDS ORDERED: NA CHLORIDE 0.9% 1,000 ML IV ONE (09:12)
[2023-04-01] MEDS: CIPROFLOXACIN 400mg IV 400 MG/200 ML BAG IV SCH ×2 (09:20→20:23)
[2023-04-02] MEDS: METRONIDAZOLE 500mg IVPB 500 MG/100 ML BAG IV SCH ×4 (00:54→17:53)
[2023-04-02] MEDS: MORPHINE 4 MG/ML SYR IV PRN ×4 (00:57→13:44)
[2023-04-02] MEDS: NS KCL 20MEQ 20 MEQ/1,000 ML BAG IV SCH ×5 (01:00→21:27)
[2023-04-02 06:29] LABS: Absolute Lymphocytes (CBC) 2.7 K/uL (0.7-4.9); Hematocrit 31.7 % (36.0-45.0); Lymphocytes % 36.4 % (15.3-44.8); MCV 87.7 fL (80-100); MPV 8.4 fL (7.6-11.3); Platelets 202 thou/uL (152-406); RBC Red Blood Cell Count 3.61 M/uL (3.86-4.86)
[2023-04-02 06:57] LABS: Potassium 3.8 mEq/L (3.5-5.1)
[2023-04-02] MEDS: CIPROFLOXACIN 400mg IV 400 MG/200 ML BAG IV SCH ×2 (09:46→21:26)
[2023-04-02] MEDS: MORPHINE 2 MG/ML SYR IV PRN ×2 (17:53→21:26)
--- NOTE | 2023-04-02 18:11 | PN ---
Date of Progress Note: 04/02/2023 The patient states she feels somewhat better than clinically. She does look better. White count is now normal. However, her tenderness is still present and her appetite is still decreased. She was s een by Gastroenterology who felt continuation of present treatment and follow up with him in 1 week. Due to the persistence of the symptoms both clinically and symptomatically, we will order repeat CT i n the a.m. HR/MODL Voice ID: [id number] Report ID: [id number]
--- NOTE | 2023-04-02 18:11 | PN ---
Date of Progress Note: 04/02/2023 The patient states she feels somewhat better. She is requiring analgesics on a regular basis. Physi jerrell exam still shows some marked tenderness in the left lower quadrant with rebound tenderness with p ressure on the right. No nausea. No bowel movement. White count has dropped. Due to the persisten ce of the symptoms, we will consult Gastroenterology. HR/MODL Voice ID: [id number] Report ID: [id number]
[2023-04-02] MEDS: ONDANSETRON 4 MG/2 ML VIAL IV PRN (21:26)
[2023-04-03] MEDS: METRONIDAZOLE 500mg IVPB 500 MG/100 ML BAG IV SCH ×4 (01:05→17:03)
[2023-04-03] MEDS: MORPHINE 2 MG/ML SYR IV PRN ×5 (01:11→20:16)
[2023-04-03] MEDS: ONDANSETRON 4 MG/2 ML VIAL IV PRN (05:07)
[2023-04-03] MEDS: NS KCL 20MEQ 20 MEQ/1,000 ML BAG IV SCH ×3 (05:20→20:16)
--- NOTE | 2023-04-03 07:59 | RAD REPORT ---
EXAM DESCRIPTION: CTAbdomen Pelvis W Contrast - 04/03/2023 6:54 am CLINICAL HISTORY: Abdominal pain. colitis COMPARISON: Abdomen Pelvis W Contrast dated 03/31/2023 TECHNIQUE: Biphasic CT imaging of the abdomen and pelvis was performed with 100 ml non-ionic IV cont rast. All CT scans are performed using dose optimization technique as appropriate and may include automated exposure control or mA/KV adjustment according to patient size. FINDINGS: Small bilateral pleural effusions.Postsurgical changes about the stomach. The liver, spleen, pancreas, adrenal glands and kidneys are within normal limits. No bowel obstruction, free air, intra-abdominal free fluid or abscess. Sigmoid diverticulosis coli wi thout diverticulitis. There is thickening noted of the descending colon wall with mild surrounding fa t stranding. This is likely colitis but appears mildly improved since comparative CT study. The appen estrella is normal. Mild pelvic free fluid. No evidence of significant lymphadenopathy. No suspicious bony findings. IMPRESSION: There has been mild to moderate improvement in descending colon colitis pattern since . Sigmoid diverticulosis coli is present without diverticulitis.
[2023-04-03] MEDS: CIPROFLOXACIN 400mg IV 400 MG/200 ML BAG IV SCH ×2 (09:10→20:16)
--- NOTE | 2023-04-03 18:50 | PN ---
Date of Progress Note: 04/03/2023 The patient states she feels somewhat better today. She is starting to get her appetite back. Her v ital signs are stable. Still has some abdominal tenderness, questionable rebound tenderness in the l eft lower quadrant. Tolerating fluids. We will advance to soft diet and if tolerated, then regular. Blood counts are normal. Will probably discharge in the a.m. HR/MODL Voice ID: [id number] Report ID: [id number]
[2023-04-03 19:46] VITALS: O2SAT 100
[2023-04-04] MEDS: METRONIDAZOLE 500mg IVPB 500 MG/100 ML BAG IV SCH ×2 (00:06→05:31)
[2023-04-04] MEDS: MORPHINE 2 MG/ML SYR IV PRN ×2 (02:14→08:05)
[2023-04-04] MEDS: NS KCL 20MEQ 20 MEQ/1,000 ML BAG IV SCH (05:25)
[2023-04-04 07:07] VITALS: BP 108/71; TEMP 97.4
[2023-04-04 08:04] LABS: Absolute Lymphocytes (CBC) 2.5 K/uL (0.7-4.9); Hematocrit 33.2 % (36.0-45.0); Lymphocytes % 25.2 % (15.3-44.8); MCV 86.4 fL (80-100); MPV 7.6 fL (7.6-11.3); Platelets 250 thou/uL (152-406); RBC Red Blood Cell Count 3.84 M/uL (3.86-4.86)
[2023-04-04] MEDS: CIPROFLOXACIN 400mg IV 400 MG/200 ML BAG IV SCH (08:05)
[2023-04-04 08:14] LABS: Potassium 3.8 mEq/L (3.5-5.1)
--- NOTE | 2023-04-04 19:28 | PN ---
Date of Progress Note: 04/04/2023 Subjective: The patient states she feels considerably better. This correlates with the clinical and I felt that she could be discharged, tolerating a soft diet. Continue on her Flagyl and Cipro and s he will be seen actually tomorrow for a steroid injection neurologist secondary to back pr oblem and to see Dr. Jack in 1 week. She was also given a prescription Tylenol 3. HR/MODL Voice ID: [id number] Report ID: [id number]
== END 2023-04-04 10:55 | disposition home or self-care (01) | DRG 392 ==
LOC: ER 06:48 → ERHOLD 10:12 → 2ND 12:18
PROVIDERS: ADMIT Family Medicine; ATTEND Family Medicine
DX: K57.92 Diverticulitis of intestine, part unspecified, without perforation or abscess without bleeding (principal); N39.0 Urinary tract infection, site not specified; E86.0 Dehydration; M79.2 Neuralgia and neuritis, unspecified; F32.A Depression, unspecified; G47.00 Insomnia, unspecified; E87.6 Hypokalemia
CPT/HCPCS: 36415; 74177; 76705; 80048; 80053; 80076; 81001; 81025; 83690; 83735; 84132; 85025; 96374; 96375; 99285; J0696; J0744; J2270; J2405; J3010; J3480; J7030; Q9967

== ENCOUNTER 2023-10-11 16:57 | Emergency (ER) | payer OTHER ==
--- OUTSIDE RECORDS SUMMARY | 2023-10-11 17:00 | XMS REPORT | Continuity of Care Document ---
Author Name Unknown Address [address] [place] [address] [facility] thconnect Address 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 Name Role Phone Pcp, Patient Does Not Have A Primary Care Physic thania GC_MARTAG_Mendoza_Hansa Attending Clinician Unavailable Rosie Levine Attending Clinician Sonya vailable Rosie Levine A Attending Clinician + [phone] CARLOS EDUARDO_SWOBRABIAKitty_Foreign_J Attending Clinician Unavail able Sandra TORO Theodora Andres Attending Clinician + [phone] Geoff Canales Attending Clinician [phone] GEOFF WALTON Attending Clinician Unavailable Mahsa Ray MD Attending Clinician [phone] MAHSA RAY Attending Clinician Unavailable Doctor Unassigned, [place] Attending Clinician U navailable GC_LMG_Compterrell_B Admitting Clinician Unavailable Abner Rosie Wallace Admitting Clinician Sonya vailable GC_SWOBGYN_Foreign_J Admitting Clinician Unavail able Payers Payer Name Policy Type Policy Number Effective Date Expirati on Date Source [employer] - CHOICE (POS II) [id number] 2021 00:00:00 Problems Condition Name Condition Details Condition Category Status Onset Date Resolution Date Last Treatment Date Treating Clinician Comments Source Anxiety Anxiety Problem Active 10-12 00:00: 00 [facility] Chest pain Chest pain Disease Active 08-05 00:00: 00 [facility] Allergies, Adverse Reactions, Alerts Allergy Name Allergy Type Status Severity Reaction(s) Onset Date Inactive Date Treating Clinician Comments Source NO KNOWN ALLERGIE S Drug Class Active [facility] Social History Social Habit Start Date Stop Date Quantity Comments Source History of tobacco use Cigarette Smoker [facility] Exposure to SARS-CoV-2 (event) Not sure [facility] Alcohol intake 2021-01-10 00:00:00 2021-01-10 00:00:00 0 /d [facility] Cigarettes smoked current (pack per day) - Reported 2020-11-12 00:00:00 2020-11-12 00:00:00 [facility] Cigarette pack-years 2020-11-12 00:00:00 2020-11-12 00:00:00 [facility] Tobacco use and exposure 2020-11-12 00:00:00 2020-11-12 00:00:00 Never used [facility] Sex Assigned At 1980 00:00:00 1980 00:00:00 [facility] Smoking Status Start Date Stop Date Source Light Tobacco Smoker [facility] Former smoker 2020-11-12 00:00:00 2020-11-12 00:00:00 [facility] Medications Ordered Medication Name Filled Medication Name [...] 01-10 00:00: 00 01-16 04:59 :00 No [id number] 4mg Take 1 tablet by mouth every 8 (eight) hours as needed for Nausea and Vomiting (N/V) for up to 5 days. [facility] metoclopram naty HCl 10 mg tablet 11-12 00:00: 00 Yes [id number] 1 tab every 4hr as needed for nausea [facility] cephALEXin 500 mg tablet 11-12 00:00: 00 11-18 04:59 :00 No [id number] 500mg Take 1 tablet by mouth 2 (two) times daily for 5 days. May use capsules [facility] SUMATRIPTAN SUCCINATE (IMITREX ORAL) 08-11 20:46: 13 Yes Take by mouth as needed for Headache. [facility] clonazePAM (KLONOPIN) 0.5 [...] by mouth daily. [facility] acetaminoph en 300 mg-codeine 30 mg tablet TAKE 1 TABLET BY MOUTH EVERY 6 HOURS acetaminoph en 300 mg-codeine 30 mg tablet TAKE 1 TABLET BY MOUTH EVERY 6 HOURS No acetaminop hen 300 mg-codeine 30 mg tablet TAKE 1 TABLET BY MOUTH EVERY 6 HOURS [facility] alprazolam 1 mg tablet TAKE 1 TABLET BY MOUTH TWICE A DAY alprazolam 1 mg tablet TAKE 1 TABLET BY MOUTH TWICE A DAY No alprazolam 1 mg tablet TAKE 1 TABLET BY MOUTH TWICE A DAY [facility] atorvastati n 20 mg tablet TAKE 1 TABLET BY MOUTH EVERY DAY atorvastati n 20 mg tablet TAKE 1 TABLET BY MOUTH EVERY DAY No atorvastat in 20 mg tablet TAKE 1 TABLET BY MOUTH EVERY DAY [facility] omeprazole 40 mg capsule,del ayed release TAKE 1 CAPSULE BY MOUTH EVERY DAY omeprazole 40 mg capsule,del ayed release TAKE 1 CAPSULE BY MOUTH EVERY DAY No omeprazole 40 mg capsule,de layed release TAKE 1 CAPSULE BY MOUTH EVERY DAY [facility] phentermine 37.5 mg tablet TAKE 1 TABLET BY MOUTH EVERY DAY IN THE MORNING phentermine 37.5 mg tablet TAKE 1 TABLET BY MOUTH EVERY DAY IN THE MORNING No phentermin e 37.5 mg tablet TAKE 1 TABLET BY MOUTH EVERY DAY IN THE MORNING [facility] sumatriptan 100 mg tablet TAKE 1 TABLET BY MOUTH EVERY DAY NEEDED sumatriptan 100 mg tablet TAKE 1 TABLET BY MOUTH EVERY DAY NEEDED No sumatripta n 100 mg tablet TAKE 1 TABLET BY MOUTH EVERY DAY NEEDED [facility] sumatriptan 20 mg/actuatio n nasal spray 1 NASAL SPRAY EVERY DAY NEEDED sumatriptan 20 mg/actuatio n nasal spray 1 NASAL SPRAY EVERY DAY NEEDED No sumatripta n 20 mg/actuati on nasal spray 1 NASAL SPRAY EVERY DAY NEEDED [facility] torsemide 20 mg tablet TAKE 1 TABLET BY MOUTH EVERY DAY torsemide 20 mg tablet TAKE 1 TABLET BY MOUTH EVERY DAY No torsemide 20 mg tablet TAKE 1 TABLET BY MOUTH EVERY DAY [facility] zolpidem 10 mg tablet TAKE 1 TABLET BY MOUTH AT BEDTIME NEEDED zolpidem 10 mg tablet TAKE 1 TABLET BY MOUTH AT BEDTIME NEEDED No zolpidem 10 mg tablet TAKE 1 TABLET BY MOUTH AT BEDTIME NEEDED [facility] Vital Signs Vital Name Observation Time Observation Value Comments S ource BP Diastolic 2021-10-12 00:00:00 82 mm[Hg] [facility] Height 2021-10-12 00:00:00 65 [in_i] [facility] BMI (Body Mass Index) 2021-10-12 00:00:00 31.3 kg/m2 [facility] BP Systolic 2021-10-12 00:00:00 121 mm[Hg] [facility] Body Weight 2021-10-12 00:00:00 188.2 [lb_av] [facility] Respiratory rate 2021-01-10 14:42:00 18 /min [facility] Body height 2021-01-10 14:42:00 165.1 cm [facility] Body weight 2021-01-10 14:42:00 79.379 kg [facility] BMI 2021-01-10 14:42:00 29.12 kg/m2 [facility] Oxygen saturation in Arterial blood by Pulse oximetry 2021-01-10 14:42:00 99 /min [facility] Systolic blood pressure 2021-01-10 14:42:00 127 mm[Hg] [facility] Diastolic blood pressure 2021-01-10 14:42:00 79 mm[Hg] [facility] Heart rate 2021-01-10 14:42:00 112 /min [facility] Body temperature 2021-01-10 14:42:00 36.17 [employer] [facility] Systolic blood pressure 2020-11-12 22:38:00 115 mm[Hg] [facility] Diastolic blood pressure 2020-11-12 22:38:00 81 mm[Hg] [facility] Heart rate 2020-11-12 22:38:00 134 /min [facility] Body temperature 2020-11-12 22:38:00 36.83 [employer] [facility] Body height 2020-11-12 22:38:00 167.6 cm [facility] Body weight 2020-11-12 22:38:00 83.915 kg [facility] BMI 2020-11-12 22:38:00 29.86 kg/m2 [facility] Oxygen saturation in Arterial blood by Pulse oximetry 2020-11-12 22:38:00 99 /min [facility] Procedures Procedure Date / Time Performed Performing Clinician Source MAMMO, screening, digital, bilateral 2021-10-12 00:00:00 [facility] URINALYSIS MICROSCOPIC 2020-11-13 00:17:00 Bart Ray [facility] POCT URINALYSIS 2020-11-13 00:13:00 [facility] 2020-11-12 22:21:26 Docto r Unassigned, [place] [facility] Breast Surgery - Augmentation [facility] Plan of Care Planned Activity Planned Date Details Comments Source Diagnostic Test Pending 2021-10-12 00:00:00 pap, LB + HR HPV + reflex HPV (16+18) [code = pap, LB + HR HPV + reflex HPV (16+18)] [facility] Instructions [facility] Encounters Start Date/Time End Date/Time Encounter Type Admission Type Attending Clinicians Care Facility Care Department Encounter ID Source 2022-06-19 00:00:00 2022-06-19 00:00:00 Outpatient GC_LMG_Comp ton_B PRIV PRIV [id number] [facility] 2021-11-08 00:00:00 2021-11-08 00:00:00 Outpatient GC_LMG_Comp ton_B PRIV PRIV [id number] [facility] 2021-10-13 08:00:00 2021-10-13 08:00:00 Outpatient Rosie Wells [id number] [facility] 2021-10-12 12:06:00 2021-10-12 12:06:00 Outpatient GC_LMG_Comp ton_B PRIV PRIV [id number] [facility] 2021-10-12 00:00:00 2021-10-12 00:00:00 Outpatient Rosie Araujo PRIV PRIV [id number] 2021-10-12 00:00:00 2021-10-12 00:00:00 Rosie rodriguez MD: [id number] [place] [address] , Ph. [facility] - GC_LMG_Suga [facility] Office* [id number] [facility] 2021-10-11 10:16:00 2021-10-11 10:16:00 Outpatient GC_SWOBRABIAN_ Arvindman_J [facility] [id number] [facility] 2021-09-18 05:39:00 2021-09-18 05:39:00 Outpatient GC_LMG_Comp ton_B [facility] [id number] [facility] 2021-09-18 05:39:00 2021-09-18 05:39:00 Outpatient GC_LMG_Comp ton_B [facility] [id number] [facility] 2021-01-10 09:39:36 2021-01-10 10:12:23 Urgent Care [facility] [id number] [facility] 2021-01-10 09:40:00 2021-01-10 09:40:00 Outpatient GEOFF PARRA [facility] [id number] [facility] 2020-11-12 17:22:14 2020-11-12 19:46:41 Urgent Care Mahsa Ray [facility] Office Building One [id number] [facility] 2020-11-12 17:20:00 2020-11-12 17:20:00 Outpatient MAHSA HARPER [facility] [id number] [facility] 2020-11-12 00:00:00 2020-11-12 00:00:00 Orders Only Doctor Unassigned, [place] [facility] [id number] [facility] Results Test Description Test Time Test Comments Results Result Co mments Source [facility] SPECIFIC [id number] 00:15:00* Test Item Value Reference Range Interpretation [...] internal controls Lab Interpretation (test code = 07875-0) Abnormal [facility] URINALYSIS W SPECIFIC [id number] 00:15:00* Test Item Value Reference Range Interpretation [...] internal controls Lab Interpretation (test code = 55751-5) Abnormal [facility]
[2023-10-11] MEDS ORDERED: ACETAMINOPHEN 500 MG TAB ONE (17:22)
[2023-10-11] MEDS ORDERED: KETOROLAC 30 MG/ML INJ ONE (17:23)
[2023-10-11] MEDS ORDERED: Magnesium Sulfate 2gm IVPB 2 G/50 ML BAG IV ONE (17:23)
[2023-10-11] MEDS ORDERED: DIPHENHYDRAMINE 50 MG/ML VIAL ONE (17:23)
[2023-10-11] MEDS ORDERED: dexAMETHasone 10 MG/ML VIAL ONE (17:23)
[2023-10-11] MEDS ORDERED: METOCLOPRAMIDE 10 MG/2mL INJ ONE (17:23)
[2023-10-11] MEDS ORDERED: NA CHLORIDE 0.9% 1,000 ML ONE (17:24)
[2023-10-11 17:47] LABS: Absolute Monocytes 0.7 K/uL (0.1-1.3); Absolute Neutrophil 5.5 K/uL (1.8-8.0); Basophils % 0.5 % (0-1.3); Eosinophils % 0.5 % (0-4.4); Hematocrit 38.3 % (36.0-45.0); Hemoglobin 12.7 g/dL (12.0-15.0); Lymphocytes % 24.3 % (15.3-44.8); MCH 28.8 pg (27.0-35.0); MCV 87.3 fL (80-100); MPV 7.3 fL (7.6-11.3); Monocytes % 8.4 % (3.3-12.3); Neutrophils % 66.3 % (41.7-73.7); Platelets 365 thou/uL (152-406); RBC Red Blood Cell Count 4.39 M/uL (3.86-4.86); Red Cell Distribution Width 16.2 % (12.1-15.2)
[2023-10-11 18:05] LABS: AST/SGOT 11 U/L (15-37); Albumin 3.2 g/dL (3.4-5.0); Albumin/Globulin Ratio 1.1 (1.1-1.8); Alkaline Phosphatase 46 U/L (45-117); Anion Gap 7.4 mEq/L (5.0-15.0); BUN Blood Urea Nitrogen 11 mg/dL (7-18); Bicarbonate 22 mEq/L (21-32); Bilirubin Total 0.2 mg/dL (0.2-1.0); Globulin 2.9 g/dL (2.3-3.5); Glomerular Filtration Rate 74 ml/min (=/>90); Glucose Level 107 mg/dL (74-106); Magnesium 1.9 mg/dL (1.6-2.4); Potassium 3.4 mEq/L (3.5-5.1); Protein, Total 6.1 g/dL (6.4-8.2); Sodium Level 138 mEq/L (136-145); Troponin High Sensitivity 4.1 pg/mL (<58.9)
[2023-10-11 18:07] LABS: ALT/SGPT < 14 U/L (13-56); Bilirubin Direct < 0.2 mg/dL (0-0.2)
--- NOTE | 2023-10-11 18:12 | RAD REPORT ---
EXAM DESCRIPTION: Eva Single View10/11/2023 6:04 pm CLINICAL HISTORY: Chest pain COMPARISON: 2021 FINDINGS: The lungs appear clear of acute infiltrate. The heart is normal size IMPRESSION: No acute abnormalities displayed
--- NOTE | 2023-10-11 19:01 | ER ---
Nurse's Notes [facility] Name: Nelsy Hernández Age: 43 yrs Sex: Female : 1980 Arrival Date: 10/11/2023 Time: 16:57 Bed 16 Private MD: Diagnosis: Migraine without aura, not intractable;Chest pain, unspecified Presentation: 10/10 17:05 Chief complaint: Patient states: migraine x 3-4 days ago. Pt's significant other also aa5 reports "she's been complaining of chest palpitations". Coronavirus screen: At this time, the client does not indicate any symptoms associated with coronavirus-19. Ebola Screen: Patient denies travel to an Ebola-affected area in the 21 days before illness onset. Initial Sepsis Screen: Does the patient meet any 2 criteria? HR > 90 bpm. Does the patient have a suspected source of infection? No. Patient's initial sepsis screen is negative. Risk Assessment: Do you want to hurt yourself or someone else? Patient reports no desire to harm self or others. Onset of symptoms was September 2023. 17:05 Acuity: CRISTINA 3 aa5 17:05 Method Of Arrival: Ambulatory aa5 Historical: - Allergies: 17:04 No Known Allergies; aa5 - PMHx: 17:04 Depression; insomnia; LOW POTASSIUM (Unknown); Migraine; aa5 - PSHx: 17:04 gastric sleeve; aa5 - Immunization history:: Adult Immunizations unknown. - Infectious Disease History:: Denies. - Social history:: Smoking status: Reported history of juuling and/or vaping. - Family history:: not pertinent. Screenin:05 [facility] ED Fall Risk Assessment (Adult) History of falling in the last 3 months, rs5 including since admission No falls in past 3 months (0 pts) Confusion or Disorientation No (0 pts) Intoxicated or Sedated No (0 pts) Impaired Gait No (0 pts) Mobility Assist Device Used No (0 pt) Altered Elimination No (0 pt) Score/Fall Risk Level 0 - 2 = Low Risk Oriented to surroundings, Maintained a safe environment. Abuse screen: Denies threats or abuse. Nutritional screening: No deficits noted. Tuberculosis screening: No symptoms or risk factors identified. Assessment: 17:05 General: Appears in no apparent distress. uncomfortable, Behavior is calm, cooperative. rs5 Pain: Complains of pain in head Pain currently is 9 out of 10 on a pain scale. Quality of pain is described as aching, Is continuous. Neuro: Level of Consciousness is awake, alert, obeys commands, Oriented to person, place, time, situation. Cardiovascular: Patient's skin is warm and dry. Cardiovascular: Reports palpitations. Respiratory: Airway is patent Respiratory effort is even, unlabored, Respiratory pattern is regular, symmetrical. GI: No signs and/or symptoms were reported involving the gastrointestinal system. : No signs and/or symptoms were reported regarding the genitourinary system. EENT: No signs and/or symptoms were reported regarding the EENT system. Derm: Skin is intact, Skin is pink, warm \\T\\ dry. Musculoskeletal: Range of motion: intact in all extremities. 18:06 Reassessment: Patient and/or family updated on plan of care and expected duration. Pain rs5 level reassessed. Patient is alert, oriented x 3, equal unlabored respirations, skin warm/dry/pink. Patient denies pain at this time. Patient states feeling better. Patient states symptoms have improved. 19:11 Reassessment: No changes from previously documented assessment. rs5 Vital Signs: 17:05 BP 108 / 73; Pulse 112; Resp 16 S; Temp 97.1(TE); Pulse Ox 95% on R/A; Weight 70.31 kg aa5 (R); Height 5 ft. 5 in. (R); 18:07 BP 113 / 77; Pulse 80; Resp 17; Pulse Ox 99% on R/A; rs5 19:11 BP 115 / 78; Pulse 70; Resp 17; Pulse Ox 99% ; rs5 17:05 Body Mass Index 25.79 (70.31 kg, 165.1 cm) aa5 ED Course: 17:01 Patient arrived in ED. ts1 17:04 Arm band placed on. aa5 17:05 Ritesh Garcia MD is Attending Physician. rt 17:05 Patient has correct armband on for positive identification. Bed in low position. Call rs5 light in reach. Side rails up X2. 17:05 No provider procedures requiring assistance completed. rs5 17:06 Triage completed. aa5 17:19 Fred Ayon, TARAN is Primary Nurse. rs5 18:06 XRAY Chest (1 view) In Process Unspecified. EDMS 19:11 IV discontinued, intact, bleeding controlled, No redness/swelling at site. Pressure rs5 dressing applied. Administered Medications: 17:25 Drug: metoCLOPramide IVP 10 mg IVP once; over 1 to 2 minutes Route: IVP; Site: right rs5 forearm; 18:04 Follow up: Response: No adverse reaction rs5 17:25 Drug: diphenhydrAMINE IVP 25 mg IVP once Route: IVP; Site: right forearm; rs5 18:04 Follow up: Response: No adverse reaction rs5 17:25 Drug: Ketorolac IVP 15 mg IVP once Route: IVP; Site: right forearm; rs5 18:04 Follow up: Response: No adverse reaction rs5 17:25 Drug: Acetaminophen PO 1000 mg PO once Route: PO; rs5 18:05 Follow up: Response: No adverse reaction rs5 17:25 Drug: NS 0.9% IV 1000 ml IV at 1 bolus Per protocol; 1000 mL bolus Route: IV; Rate: 1 rs5 bolus; Site: right forearm; 18:05 Follow up: Response: No adverse reaction rs5 17:25 Drug: Magnesium Sulfate IVPB 2 grams IVPB once over 2 hrs Route: IVPB; Infused Over: 2 rs5 hrs; Site: right forearm; 18:05 Follow up: Response: No adverse reaction rs5 17:25 Drug: Decadron - Dexamethasone IVP 10 mg IVP once Route: IVP; Site: right forearm; rs5 18:05 Follow up: Response: No adverse reaction rs5 Medication: 18:07 VIS not applicable for this client. rs5 Outcome: 19:01 Discharge ordered by . rt 19:11 Discharged to home ambulatory, with family, rs5 19:11 Condition: stable 19:11 Discharge instructions given to patient, family, Instructed on discharge instructions, follow up and referral plans. medication usage, Demonstrated understanding of instructions, follow-up care, medications, Prescriptions given X 1, 19:12 Patient left the ED. rs5 Signatures: Dispatcher [employer] EDMS Cally Pacheco RN RN aa5 Ritesh Garcia MD MD rt Fred Ayon RN RN rs5 Maribel Romano PAS PAS ts1
--- NOTE | 2023-10-11 19:01 | EDPHYS ---
Physician Documentation [facility] Name: Nelsy Hernández Age: 43 yrs Sex: Female : 1980 Arrival Date: 10/11/2023 Time: 16:57 Bed 16 Private MD: ED Physician Ritesh Garcia HPI: 10/10 17:39 This 43 yrs old Female presents to ER via Ambulatory with complaints of Migraines. rt 17:39 Patient presents to the ED with complaints of migraine. Patient states that for the rt past 3 days, she has had a migraine reportedly to the forehead and a bandlike around to the back. Reports nausea, vomiting. Reports light sensitivity but not sound sensitivity. Patient's symptoms have been unrelieved with OTC medicines at home. Patient reports the chest pain starting last night with palpitations that persisted today. Denies other acute complaints, symptoms are moderate in severity, no other aggravating or alleviating factors.. Historical: - Allergies: 17:04 No Known Allergies; aa5 - PMHx: 17:04 Depression; insomnia; LOW POTASSIUM (Unknown); Migraine; aa5 - PSHx: 17:04 gastric sleeve; aa5 - Immunization history:: Adult Immunizations unknown. - Infectious Disease History:: Denies. - Social history:: Smoking status: Reported history of juuling and/or vaping. - Family history:: not pertinent. ROS: 17:39 Constitutional: Negative for fever, chills, and weight loss, Respiratory: Negative for rt shortness of breath, cough, wheezing, and pleuritic chest pain, Abdomen/GI: Negative for abdominal pain, nausea, vomiting, diarrhea, and constipation, Skin: Negative for injury, rash, and discoloration, 17:39 Cardiovascular: Positive for chest pain, palpitations, 17:39 Neuro: Positive for headache, Negative for altered mental status, Exam: 17:39 Constitutional: This is a well developed, well nourished patient who is awake, alert, rt and in no acute distress. Head/Face: Normocephalic, atraumatic. Chest/axilla: Normal chest wall appearance and motion. Nontender with no deformity. No lesions are appreciated. Cardiovascular: Regular rate and rhythm with a normal S1 and S2. No gallops, murmurs, or rubs. Normal PMI, no JVD. No pulse deficits. Respiratory: Lungs have equal breath sounds bilaterally, clear to auscultation and percussion. No rales, rhonchi or wheezes noted. No increased work of breathing, no retractions or nasal flaring. Abdomen/GI: Soft, non-tender, with normal bowel sounds. No distension or tympany. No guarding or rebound. No evidence of tenderness throughout. Skin: Warm, dry with normal turgor. Normal color with no rashes, no lesions, and no evidence of cellulitis. MS/ Extremity: Pulses equal, no cyanosis. Neurovascular intact. Full, normal range of motion. Neuro: Awake and alert, GCS 15, oriented to person, place, time, and situation. Cranial nerves II-XII grossly intact. Motor strength 5/5 in all extremities. Sensory grossly intact. Cerebellar exam normal. Normal gait. 18:04 ECG was reviewed by the Attending Physician. rt Vital Signs: 17:05 BP 108 / 73; Pulse 112; Resp 16 S; Temp 97.1(TE); Pulse Ox 95% on R/A; Weight 70.31 kg aa5 (R); Height 5 ft. 5 in. (R); 18:07 BP 113 / 77; Pulse 80; Resp 17; Pulse Ox 99% on R/A; rs5 19:11 BP 115 / 78; Pulse 70; Resp 17; Pulse Ox 99% ; rs5 17:05 Body Mass Index 25.79 (70.31 kg, 165.1 cm) aa5 MDM: 17:07 Patient medically screened. rt 19:16 Differential Diagnosis Migraine headache, ACS, nonspecific chest pain. Data reviewed: rt vital signs, nurses notes, lab test result(s), EKG, radiologic studies. I considered the following discharge prescriptions or medication management in the emergency department Medications were administered in the Emergency Department. See MAR. Independent interpretation of the following test(s) in the Emergency Department X-Ray: My interpretation is No consolidation seen on interpretation of x-ray images. Test considered but Not performed: CT: Patient with chronic migraines, similar to prior migraines, CT scan is not indicated.. Counseling: I had a detailed discussion with the patient and/or guardian regarding the historical points, exam findings, and any diagnostic results supporting the discharge/admit diagnosis, lab results, radiology results, the need for outpatient follow up, to return to the emergency department if symptoms worsen or persist or if there are any questions or concerns that arise at home. Response to treatment: the patient's symptoms have markedly improved after treatment. 10/10 17:16 Order name: Basic Metabolic Panel; Complete Time: 18:10 rt 10/10 17:16 Order name: CBC with Diff; Complete Time: 18:10 rt 10/10 17:16 Order name: LFT's; Complete Time: 18:10 rt 10/10 17:16 Order name: Magnesium; Complete Time: 18:10 rt 10/10 17:16 Order name: Troponin HS; Complete Time: 18:10 rt 10/10 17:16 Order name: XRAY Chest (1 view); Complete Time: 18:14 rt 10/10 17:16 Order name: Cardiac monitoring; Complete Time: 17:47 rt 10/10 17:16 Order name: EKG - Nurse/Tech; Complete Time: 17:47 rt 10/10 17:16 Order name: IV Saline Lock; Complete Time: 18:05 rt 10/10 17:16 Order name: Labs collected and sent; Complete Time: 18:05 rt 10/10 17:16 Order name: O2 Per Protocol; Complete Time: 18:05 rt 10/10 17:16 Order name: O2 Sat Monitoring; Complete Time: 18:05 rt EC:04 Rate is 91 beats/min. Rhythm is regular, Normal Sinus Rhythm with No ectopy. QRS [place] rt is Normal. [place] interval is normal. QRS interval is normal. QT interval is normal. No Q waves. T waves are Normal. No ST changes noted. Interpreted by me. Administered Medications: 17:25 Drug: metoCLOPramide IVP 10 mg IVP once; over 1 to 2 minutes Route: IVP; Site: right rs5 forearm; 18:04 Follow up: Response: No adverse reaction rs5 17:25 Drug: diphenhydrAMINE IVP 25 mg IVP once Route: IVP; Site: right forearm; rs5 18:04 Follow up: Response: No adverse reaction rs5 17:25 Drug: Ketorolac IVP 15 mg IVP once Route: IVP; Site: right forearm; rs5 18:04 Follow up: Response: No adverse reaction rs5 17:25 Drug: Acetaminophen PO 1000 mg PO once Route: PO; rs5 18:05 Follow up: Response: No adverse reaction rs5 17:25 Drug: NS 0.9% IV 1000 ml IV at 1 bolus Per protocol; 1000 mL bolus Route: IV; Rate: 1 rs5 bolus; Site: right forearm; 18:05 Follow up: Response: No adverse reaction rs5 17:25 Drug: Magnesium Sulfate IVPB 2 grams IVPB once over 2 hrs Route: IVPB; Infused Over: 2 rs5 hrs; Site: right forearm; 18:05 Follow up: Response: No adverse reaction rs5 17:25 Drug: Decadron - Dexamethasone IVP 10 mg IVP once Route: IVP; Site: right forearm; rs5 18:05 Follow up: Response: No adverse reaction rs5 Disposition Summary: 10/11/23 19:01 Discharge Ordered Notes: Location: Home rt Problem: new rt Symptoms: have improved rt Condition: Stable rt Diagnosis - Migraine without aura, not intractable rt - Chest pain, unspecified rt Followup: rt - With: Private Physician - When: 2 - 3 days - Reason: Discharge Instructions: - Discharge Summary Sheet rt - Nonspecific Chest Pain, Adult rt - Migraine Headache rt Forms: - Medication Reconciliation Form rt - Antibiotic Education rt - Prescription Opioid Use rt - Patient Portal Instructions rt - Leadership Thank You Letter rt Prescriptions: - Imitrex 25 mg Oral Tablet - take 1 tablet ORAL route one time - x 1 dose with fluids as early as possible rt after the onset of a migraine attack; if headache returns, the dose may be repeated after 2 hours, not to exceed a total daily dose of 8 tablets; 12 tablet; Refills: 0, Product Selection Permitted Signatures: Dispatcher [facility] EDCally Cheney RN RN aa5 Ritesh Garcia MD MD rt Fred Ayon RN RN rs5 Corrections: (The following items were deleted from the chart) 17:17 17:17 BASIC METABOLIC PANEL+C.LAB.BRZ ordered. EDMS EDMS 17:17 17:17 CBC+H.LAB.BRZ ordered. EDMS EDMS 17:17 17:17 HEPATIC FUNCTION+C.LAB.BRZ ordered. EDMS EDMS 17:17 17:17 MAGNESIUM+C.LAB.BRZ ordered. EDMS EDMS 17:17 17:17 Troponin High Sensitivity+C.LAB.BRZ ordered. EDMS EDMS 17:17 17:17 Chest Single View+RAD.RAD.BRZ ordered. EDMS EDMS
[2023-10-11 19:41] VITALS: BP 115/78; TEMP 97.1; O2SAT 99
--- NOTE | 2023-10-14 14:22 | EKG ---
Test Date: 2023-10-11 Test Time: 17:57:14 Building Superintendent: MEASUREMENT RESULTS: Intervals: Rate: 91 [place]: 146 QRSD: 90 QT: 378 QTc: 464 [place]: P: 57 [place]: 146 QRS: 87 T: 12 INTERPRETIVE STATEMENTS: Normal sinus rhythm Normal ECG Compared to ECG 05/03/2021 04:19:01 No significant changes Electronically Signed On 10-14-23 14:16:18 CDT by Ander Chapman
== END 2023-10-11 19:12 | disposition home or self-care (01) ==
LOC: ER 16:57
DX: G43.009 Migraine without aura, not intractable, without status migrainosus (principal); R07.9 Chest pain, unspecified
CPT/HCPCS: 85025; 80048; 36415; 83735; 80076; 84484; 71045; 96375; 96374; 99284; J3475; J2765; J1200; J1100; J7030; 93005